=== PATIENT | female | born 1995 | race Caucasian/White ===

== ENCOUNTER 2017-01-13 21:37 | Emergency (ER) | payer MEDICARE ==
[2017-01-14 00:59] LABS: APPEARANCE,URINE CLEAR; BILIRUBIN,URINE NEGATIVE (NEGATIVE); GLUCOSE, URINE NEGATIVE (NEGATIVE); KETONES,URINE NEGATIVE (NEGATIVE); LEUKOCYTE ESTERASE,URINE NEGATIVE (NEGATIVE); NITRITE,URINE NEGATIVE (NEGATIVE); PROTEIN,URINE NEGATIVE (NEGATIVE); URINE SPECIFIC GRAVITY 1.014; UROBILINOGEN,URINE NEGATIVE mg/dL (<2.0)
[2017-01-14 01:51] LABS: URINE BARBITURATES SCREEN NEGATIVE; URINE METHADONE SCREEN NEGATIVE; URINE OPIATES LOW NEGATIVE; URINE PHENCYCLIDINE SCREEN NEGATIVE
--- NOTE | 2017-01-14 02:09 | ER Document Report ---
ED General - General Chief Complaint: Vaginal Discharge Stated Complaint: VAGINAL ISSUE Time Seen by Provider: 01/14/17 00:24 Notes: Patient is a 21 year old female who presents with concerns about vaginal discharge as well as diffuse abdominal pain. Patient states for the past 2 days she has had a malodorous, thin, rodriguez vaginal discharge. States this feels similar when she had bacterial vaginosis in the past. Regarding her abdominal pain: Patient states that she has chronic daily abdominal pain and that this is not different today. Does describe as a diffuse, cramping, mild pain. Nothing improves or worsens her symptoms. She has not had any associated fever or constitutional symptoms. No vomiting or diarrhea. Denies any dysuria or hematuria. She has not seen her primary care doctor regarding today's concerns. TRAVEL OUTSIDE OF THE [place] IN LAST 30 DAYS: No - Related Data Allergies/Adverse Reactions: latex Allergy (Verified 01/13/17 22:53) Penicillins Allergy (Verified 01/13/17 22:53) Past Medical History - General Information source: Patient Last Menstrual Period: 01/08/17 - Social History Smoking Status: Current Every Day Smoker Frequency of alcohol use: None Drug Abuse: None Lives with: Spouse/Significant other Family History: Reviewed & Not Pertinent Patient has suicidal ideation: No Patient has homicidal ideation: No Renal/ Medical History: Denies: Hx Peritoneal Dialysis Review of Systems - Review of Systems Notes: Constitutional: Negative for fever. HENT: Negative for sore throat. Eyes: Negative for visual changes. Cardiovascular: Negative for chest pain. Respiratory: Negative for shortness of breath. Gastrointestinal: Positive for abdominal pain Genitourinary: Negative for dysuria. Positive for vaginal discharge Musculoskeletal: Negative for back pain. Skin: Negative for rash. Neurological: Negative for headaches, weakness or numbness. 10 point ROS negative except as marked above and in HPI. Physical Exam - Vital signs Vitals: Temp Pulse Resp BP Pulse Ox 98.5 F 75 18 115/63 99 01/13/17 22:11 01/13/17 22:11 01/13/17 22:11 01/13/17 22:11 01/13/17 22:11 Interpretation: Normal Notes: PHYSICAL EXAMINATION: GENERAL: Well-appearing, well-nourished and in no acute distress. HEAD: Atraumatic, normocephalic. EYES: Pupils equal round and reactive to light, extraocular movements intact, sclera anicteric, conjunctiva are normal. ENT: nares patent, oropharynx clear without exudates. Moist mucous membranes. NECK: Normal range of motion, supple without lymphadenopathy LUNGS: Breath sounds clear to auscultation bilaterally and equal. No wheezes rales or rhonchi. HEART: Regular rate and rhythm without murmurs ABDOMEN: Soft, nontender, normoactive bowel sounds. No guarding, no rebound. No masses appreciated. Pelvic: No cervical motion tenderness. No adnexal tenderness. Slight suprapubic tenderness to palpation. There is a thin, white discharge EXTREMITIES: Normal range of motion, no pitting or edema. No cyanosis. NEUROLOGICAL: No focal neurological deficits. Moves all extremities spontaneously and on command. PSYCH: Normal mood, normal affect. SKIN: Warm, Dry, normal turgor, no rashes or lesions noted. Course - Re-evaluation Re-evalutation: 01/14/17 02:07 Presentation of generalized, intermittent abdominal pain. Abdominal exam is benign without any focal tenderness. Vitals are normal at the time of arrival. Laboratories are unremarkable without evidence of cystitis, , or leukocytosis. Patient is overall very well in appearance. Based on clinical history and examination I do not suspect an acute appendicitis, tubo-ovarian abscess, related pathology, pelvic inflammatory disease, mesenteric ischemia, or pyelonephritis. Pelvic exam without cervical motion tenderness or focal adnexal tenderness. Patient does have signs and symptoms consistent with bacterial vaginosis and will be treated with metronidazole. At this time will discharge with return precautions and follow-up recommendations. Verbal discharge instructions given a the bedside and opportunity for questions given. Medication warnings reviewed. Patient is in agreement with this plan and has verbalized understanding of return precautions and the need for primary care follow-up in the next 24-72 hours. - Vital Signs Vital signs: Temp Pulse Resp BP Pulse Ox 97.7 F 76 16 104/63 98 01/14/17 02:29 01/14/17 02:29 01/14/17 02:29 01/14/17 02:29 01/14/17 02:29 Discharge - Discharge Clinical Impression: Bacterial vaginosis, Chronic abdominal pain Condition: Good Disposition: HOME, SELF-CARE Additional Instructions: You have been seen in the Emergency Department (ED) for abdominal pain. Your evaluation did not identify a clear cause of your symptoms but was generally reassuring. You do have an overgrowth of natural vaginal bacteria, called bacterial vaginosis. You are being treated with an antibiotic called metronidazole. Do not drink alcohol while taking this medication. Complete all of the antibiotic even if your symptoms have resolved. Please follow up with your doctor as soon as possible regarding today's emergent visit and the symptoms that are bothering you. Return to the ED if your abdominal pain worsens or fails to improve, you develop bloody vomiting, bloody diarrhea, you are unable to tolerate fluids due to vomiting, fever greater than 101, or other symptoms that concern you. Prescriptions: Metronidazole 500 mg PO BID #14 tablet Referrals: GIANNI VERGARA MD [Primary Care Provider] - Follow up as needed
[2017-01-14 02:30] VITALS: BP 104/63
[2017-01-14 02:39] LABS: CHLAM PCR NOT DETECTED (NOT DETECT)
== END 2017-01-14 02:30 | disposition home or self-care (01) ==
LOC: ER 21:37
DX: N76.0 Acute vaginitis (principal); B96.89 Other specified bacterial agents as the cause of diseases classified elsewhere; G89.29 Other chronic pain; R10.84 Generalized abdominal pain; F17.200 Nicotine dependence, unspecified, uncomplicated; Z91.041 Radiographic dye allergy status; Z88.0 Allergy status to penicillin
CPT/HCPCS: 80307; 81001; 81025; 87210; 87491; 87591; 99283

== ENCOUNTER 2017-02-13 23:15 | Emergency (ER) | payer MEDICARE ==
--- NOTE | 2017-02-13 23:21 | ER Document Report ---
ED Psych Disorder / Suicide - General Chief Complaint: Possible Overdose Stated Complaint: SUICIDIAL IDEATION Time Seen by Provider: 02/13/17 23:17 Notes: The patient is a 22-year-old female, past medical history anxiety, depression, bipolar, PTSD, ADHD, presents by EMS after she took 25 tabs of the 150 mg Wellbutrin tabs in an attempt to kill herself at 22:30. Her called 911. Patient is very depressed about an upcoming divorce. She denies seizures , chest pain, shortness of breath, numbness, tingling, nausea, vomiting or abdominal pain. TRAVEL OUTSIDE OF THE [place] IN LAST 30 DAYS: No - Related Data Allergies/Adverse Reactions: latex Allergy (Verified 01/13/17 22:53) Penicillins Allergy (Verified 01/13/17 22:53) Past Medical History - General Information source: Patient, Emergency Med Personnel - Social History Smoking Status: Unknown if Ever Smoked Family History: Reviewed & Not Pertinent Renal/ Medical History: Denies: Hx Peritoneal Dialysis Review of Systems - Review of Systems Notes: REVIEW OF SYSTEMS: CONSTITUTIONAL: -fevers, -chills EENT: -eye pain, -difficulty swallowing, -nasal congestion CARDIOVASCULAR:-chest pain, -syncope. RESPIRATORY: -cough, -SOB GASTROINTESTINAL: -abdominal pain, - nausea, -vomiting, -diarrhea GENITOURINARY: -dysuria, -hematuria MUSCULOSKELETAL: -back pain, -neck pain SKIN: -rash or skin lesions. HEMATOLOGIC: -easy bruising or bleeding. LYMPHATIC: -swollen, enlarged glands. NEUROLOGICAL: -altered mental status or loss of consciousness, -headache, - neurologic symptoms PSYCHIATRIC: -anxiety, +depression. ALL OTHER SYSTEMS REVIEWED AND NEGATIVE. Physical Exam - Vital signs Vitals: Temp Pulse Resp BP Pulse Ox 97.6 F 94 21 H 119/75 100 02/14/17 00:05 02/14/17 00:05 02/14/17 00:05 02/14/17 00:05 02/14/17 00:05 - Notes Notes: PHYSICAL EXAMINATION: GENERAL: Well-appearing, well-nourished and in no acute distress. HEAD: Atraumatic, normocephalic. EYES: Pupils equal round and reactive to light, extraocular movements intact, sclera anicteric, conjunctiva are normal. ENT: nares patent, oropharynx clear without exudates. Moist mucous membranes. NECK: Normal range of motion, supple without lymphadenopathy LUNGS: Breath sounds clear to auscultation bilaterally and equal. No wheezes rales or rhonchi. HEART: Regular rate and rhythm without murmurs ABDOMEN: Soft, nontender, normoactive bowel sounds. No guarding, no rebound. No masses appreciated. EXTREMITIES: Normal range of motion, no pitting or edema. No cyanosis. NEUROLOGICAL: Cranial nerves grossly intact. Normal speech, normal gait. Normal sensory and motor exams. PSYCH: Flat affect. SKIN: Warm, Dry, normal turgor, no rashes or lesions noted. Course - Re-evaluation Re-evalutation: 02/13/17 23:39 Pt appears well. IVC filled out. Pt with leukocytosis, but no signs of infection at this time. Flakita RN, spoke to Poison Control and they are recommending activated charcoal, monitor for 18-24 hours, repeat EKGs and if QRS is prolonged, give Bicarb bolus. Benzos for any seizures. There is a risk for seizures and delayed effects from the Wellbutrin due to the long- acting nature. Pt will be monitored. Mental Health will see patient once she is medically cleared at 02/14/2017 at 22:00. - Vital Signs Vital signs: Temp Pulse Resp BP Pulse Ox 97.6 F 94 23 H 101/59 L 98 02/14/17 00:05 02/14/17 00:05 02/14/17 03:40 02/14/17 03:40 02/14/17 03:40 - Laboratory Result Diagrams: 02/13/17 23:25 02/13/17 23:25 Laboratory results interpreted by me: 02/13/17 02/13/17 02/13/17 23:19 23:25 23:25 WBC 16.5 H RDW 15.0 H Absolute Neutrophils 10.9 H Chloride 110 H Calcium 10.3 H Ur Leukocyte Esterase SMALL H Salicylates < 1.0 L Acetaminophen < 10 L - EKG Interpretation by Me EKG shows normal: Sinus rhythm, Good[place], Intervals, QRS Complexes, ST-T Waves Rate: Normal - She Discharge - Discharge Clinical Impression: Bupropion overdose Qualifiers: Encounter type: initial encounter Injury intent: intentional self-harm Qualified Code(s): T43.292A - Poisoning by other antidepressants, intentional self-harm, initial encounter Condition: Serious Disposition: PSYCH HOSP/UNIT
[2017-02-13 23:34] LABS: ABSOLUTE BASOPHILS # (AUTO) 0.2 10^3/uL (0.0-0.2); ABSOLUTE EOSINOPHILS # (AUTO) 0.2 10^3/uL (0.0-0.6); ABSOLUTE MONOCYTES (AUTO) 1.2 10^3/uL (0.1-1.4); ABSOLUTE NEUT (AUTO) 10.9 10^3/uL (1.7-8.2); EOSINOPHILS % (AUTO) 1.3 % (0-6); HEMATOCRIT 41.6 % (36.0-47.0); HEMOGLOBIN 14.6 g/dL (12.0-15.5); HGB HCT DIFFERENCE 2.2; LYMPHOCYTES % (AUTO) 24.3 % (13-45); MEAN CORPUSCULAR HEMOGLOBIN 30.3 pg (27.0-33.4); MEAN CORPUSCULAR HGB CONC 35.2 g/dL (32.0-36.0); MEAN CORPUSCULAR VOLUME 86 fl (80-97); MONOCYTES % (AUTO) 7.4 % (3-13); RED BLOOD COUNT 4.82 10^6/uL (3.72-5.28); WHITE BLOOD COUNT 16.5 10^3/uL (4.0-10.5)
[2017-02-13 23:41] LABS: AMORPHOUS SEDIMENT,URINE 1+ /HPF; APPEARANCE,URINE TURBID; BILIRUBIN,URINE NEGATIVE (NEGATIVE); GLUCOSE, URINE NEGATIVE (NEGATIVE); KETONES,URINE NEGATIVE (NEGATIVE); LEUKOCYTE ESTERASE,URINE SMALL (NEGATIVE); NITRITE,URINE NEGATIVE (NEGATIVE); PROTEIN,URINE NEGATIVE (NEGATIVE); URINE SPECIFIC GRAVITY 1.015; UROBILINOGEN,URINE NEGATIVE mg/dL (<2.0)
[2017-02-13 23:51] LABS: URINE BARBITURATES SCREEN NEGATIVE; URINE METHADONE SCREEN NEGATIVE; URINE OPIATES LOW NEGATIVE; URINE PHENCYCLIDINE SCREEN NEGATIVE
[2017-02-14 00:10] LABS: ALANINE AMINOTRANSFERASE 23 U/L (9-52); ALBUMIN 4.3 g/dL (3.5-5.0); ALCOHOL < 10 mg/dL (NONE DETECTED); ALKALINE PHOSPHATASE 84 U/L (38-126); ANION GAP 9 (5-19); ASPARTATE AMINO TRANSFERASE 18 U/L (14-36); BILIRUBIN,DIRECT 0.3 mg/dL (0.0-0.4); BILIRUBIN,TOTAL 0.3 mg/dL (0.2-1.3); BLOOD UREA NITROGEN 13 mg/dL (7-20); CALCIUM 10.3 mg/dL (8.4-10.2); CARBON DIOXIDE 22 mmol/L (22-30); CHLORIDE 110 mmol/L (98-107); CREATININE RESULT 0.63 mg/dL (0.52-1.25); GLUCOSE 91 mg/dL (75-110); POTASSIUM 4.4 mmol/L (3.6-5.0); SODIUM 141.1 mmol/L (137-145)
[2017-02-14] MEDS ORDERED: ACTIVATED CHARCOAL 25 GM BOTTLE PO ONE (00:18)
--- NOTE | 2017-02-14 07:01 | EKG REPORT ---
SEVERITY:- NORMAL ECG - SINUS RHYTHM : Confirmed by: Bubba Denton 14-Feb-2017 07:00:03
--- NOTE | 2017-02-14 07:01 | EKG REPORT ---
SEVERITY:- NORMAL ECG - SINUS RHYTHM ST ELEV, PROBABLE NORMAL EARLY REPOL PATTERN : Confirmed by: Bubba Denton 14-Feb-2017 06:59:53
--- NOTE | 2017-02-14 09:19 | ER Document Report ---
ED Psych Disorder / Suicide - General Chief Complaint: Possible Overdose Stated Complaint: SUICIDIAL IDEATION Time Seen by Provider: 02/13/17 23:17 Information source: Patient, Relative - TRAVEL OUTSIDE OF THE [place] IN LAST 30 DAYS: No - HPI Patient complains to provider of: Overdose - Welbutrin, Suicidal ideation, Suicidal attempt Onset: Other Onset was: Gradual Suicide Risk Factors: Depressed, Frightened friends/family, Lack of social support, Other - pending divorce Situational problems related to: Spouse, Other Suicide Attempt Method: Overdose Overdose of: Anti-depressants Normal mood: No Associated symptoms: Anxious, Depressed Similar symptoms previously: Yes Recently seen / treated by doctor: Yes - PCM only Notes: The patient is a 22-year-old female, past medical history anxiety, depression, bipolar, PTSD, ADHD, presents by EMS after she took 25 tabs of the 150 mg Wellbutrin tabs in an attempt to kill herself at 22:30. Patient's reportedly called for help. Toxicology was positive for marijuana. Patient this morning states she was not attempting suicide. She states she wanted to go to sleep. Patient states "went a little overboard." Patient reports she was crying and couldn't stop, so she wanted to go to sleep. Patient reported she was crying because she and her were arguing and he told her he wanted a divorce. She states that she is diagnosed with PTSD and Bipolar Disorder. She states she receives disability for these diagnoses. Patient states she does not want to . She states she is followed by her PCM and prescribed the Wellbutrin. Discussed with patient her PTSD and any known triggers. Patient states she does not know specific stressors; however, was eventually able to identify loud voices/being yelled at. reports: everything is fine. He states their marriage is not something that needs to be discussed here. He also stated that the patient was fine, and made comments to this clinician like, "she said she didn't know." advised that this was the process and if he continued to interfere, he would be escorted out. stated he had nothing else to say. Patient is A&O. Mood is labile, and at times sad and other times laughs inappropriately. Patient denies suicidal/homicidal ideations. However, 25 tabs of Wellbutrin suggests intent. Patient denies A/V H; delusions not noted. Thought processes were guarded. Conversational speech was WNL for rate, tone, and prosody. Intellectual abilities were estimated within lower average range. Attention and focus were fair. Insight, judgment, and impulse control were poor. Posttraumatic Stress Disorder, per history Unspecified Bipolar and related Disorder, per pt Patient will be reevaluated again later today. She will not be medically cleared until 2200 tonight. Patient is recommended to remain under IVC for further evaluation and disposition, likely tomorrow morning. I consulted with Dr. Mayo in regards to the care and management of this patient. ED MD is in agreement with disposition and recommendation. - Related Data Allergies/Adverse Reactions: latex Allergy (Verified 01/13/17 22:53) Penicillins Allergy (Verified 01/13/17 22:53) Past Medical History - General Information source: Patient, Emergency Med Personnel - Social History Smoking Status: Unknown if Ever Smoked Chew tobacco use (# tins/day): No Frequency of alcohol use: None Drug Abuse: None Family History: Reviewed & Not Pertinent Pulmonary Medical History: Reports: Hx Asthma Renal/ Medical History: Denies: Hx Peritoneal Dialysis Psychiatric Medical History: Reports: Hx Attention Deficit Hyperactivity Disorder, Hx Bipolar Disorder, Hx Depression Past Surgical History: Reports: Hx Section Physical Exam - Vital signs Vitals: Temp Pulse Resp BP Pulse Ox 97.6 F 94 21 H 119/75 100 02/14/17 00:05 02/14/17 00:05 02/14/17 00:05 02/14/17 00:05 02/14/17 00:05 Course - Vital Signs Vital signs: Temp Pulse Resp BP Pulse Ox 98.3 F 86 16 115/69 100 02/14/17 09:58 02/14/17 09:58 02/14/17 09:58 02/14/17 09:58 02/14/17 09:58 - Laboratory Result Diagrams: 02/13/17 23:25 02/13/17 23:25 Laboratory results interpreted by me: 02/13/17 02/13/17 02/13/17 23:19 23:25 23:25 WBC 16.5 H RDW 15.0 H Absolute Neutrophils 10.9 H Chloride 110 H Calcium 10.3 H Ur Leukocyte Esterase SMALL H Salicylates < 1.0 L Acetaminophen < 10 L Discharge - Discharge Clinical Impression: PTSD (post-traumatic stress disorder), Bipolar 1 disorder, depressed, mild Bupropion overdose Qualifiers: Encounter type: initial encounter Injury intent: intentional self-harm Qualified Code(s): T43.292A - Poisoning by other antidepressants, intentional self-harm, initial encounter Condition: Serious Disposition: PSYCH HOSP/UNIT Additional Instructions: Bipolar Disorder Bipolar disorder is also called manic-depressive disorder. Depression alternates with brain hyperactivity called abiodun. Each phase lasts from several days to a few weeks. We don't know exactly what causes bipolar disorder , but it's treatable. During the "manic phase," you may feel elated and energetic. You may have racing thoughts, rapid speech, increased activity, and grandiose ideas. During this time, you may not realize how poor your judgement is. Inappropriate spending, drug abuse, excessive alcohol use, marriage problems, and irresponsible sexual behavior are common during the manic phase. During the "depressive phase," you might feel depressed, guilty, worthless , fatigued, and unable to concentrate. You might have thoughts of suicide. Good treatments are available for bipolar disorder. Bowring is a classic drug for bipolar disorder, and is still often useful. If the manic phase is very mild, an antidepressant alone can be prescribed. If the manic phase is very severe, an antipsychotic medicine (such as Haldol) may be needed. The treatment must be matched to your symptoms, so it's important to work closely with your psychiatric care provider. Contact your physician, the hospital emergency center, crisis line, or your counsellor if you are losing control or having self-destructive thoughts. Post-Traumatic Stress Disorder You seem to have post-traumatic stress disorder (PTSD). PTSD can cause chronic anxiety, sleeping problems, social withdrawal, and drug abuse. It can occur following a traumatic personal experience such as an accident, rape, assault, or of a loved one, or after experiencing a war or natural disaster. Symptoms may be delayed for days or even years. Emotional numbing, the inability to express grief, is usually the earliest sign. There may be apathy or agitation, aggression, and inability to perform ordinary tasks. Often there are frightening nightmares and sudden, intruding memories of the trauma. Panic attacks and feelings of guilt are common. Alcohol and drug use make post- traumatic stress symptoms worse. Medication may be temporarily necessary to combat anxiety, panic attacks, and depression. Medicine should not be considered a "cure." You must deal with the trauma and prepare to go on. Group therapy is often helpful. This helps you "talk through" the problem with others who share your symptoms. We can provide you with an appropriate referral. Referrals: [facility] [Provider Group] - Follow up as needed
--- NOTE | 2017-02-14 10:31 | ER Document Report ---
Doctor's Note Notes: 02/14/17 10:27 Patient seen and evaluated this morning with our social work supervisor. Patient is upset that she has stayed overnight. Reviewing the provider's note patient came in as an intentional overdose of 22 Wellbutrin tablets and apparent suicide attempt. Poison control was consulted due to the prolonged effects of the Wellbutrin patient will not be medically cleared until 10:00 tonight. Patient otherwise is agitated upon my evaluation nurses reported that she was having some tremors earlier. Did review EKGs no signs of any QRS widening. Patient is in the room with her significant other patient now states that she was not trying to harm herself. At this time mental health team still recommends IVC hold. I agree with this assessment and plan at this time as the patient to take a toxic dose of Wellbutrin. We will continue to monitor.
[2017-02-14] MEDS ORDERED: CITALOPRAM HYDROBROMIDE 20 MG TABLET PO SCH (12:00)
--- NOTE | 2017-02-14 20:34 | EKG REPORT ---
SEVERITY:- BORDERLINE ECG - SINUS RHYTHM BORDERLINE Q WAVES IN INFERIOR LEADS INFERIOR Q WAVES, PROBABLY NORMAL VARIATION : Confirmed by: Bubba Denton 14-Feb-2017 20:34:17
--- NOTE | 2017-02-14 20:34 | EKG REPORT ---
SEVERITY:- BORDERLINE ECG - SINUS RHYTHM PROBABLE LEFT ATRIAL ABNORMALITY INFERIOR Q WAVES, PROBABLY NORMAL VARIATION : Confirmed by: Bubba Denton 14-Feb-2017 20:34:05
[2017-02-15 08:36] VITALS: BP 119/70
--- NOTE | 2017-02-15 20:05 | EKG REPORT ---
SEVERITY:- NORMAL ECG - SINUS RHYTHM : Confirmed by: Bubba Denton 15-Feb-2017 20:04:36
== END 2017-02-15 08:49 | disposition home or self-care (01) ==
LOC: ER 23:15
DX: T43.292A Poisoning by other antidepressants, intentional self-harm, initial encounter (principal); F31.9 Bipolar disorder, unspecified; Y92.009 Unspecified place in unspecified non-institutional (private) residence as the place of occurrence of the external cause; F41.9 Anxiety disorder, unspecified; F43.10 Post-traumatic stress disorder, unspecified; Z88.0 Allergy status to penicillin; Z91.040 Latex allergy status
CPT/HCPCS: 36415; 80053; 80307; 81001; 82962; 84703; 85025; 93005; 93010; 99284

== ENCOUNTER → 2017-03-14 | Outpatient (CLI) | payer MEDICARE, OTHER ==
--- NOTE | 2017-03-14 18:59 | WOMENS IMAGING REPORT ---
EXAM DESCRIPTION: U/S BREAST UNILAT LIMITED COMPLETED DATE/TIME: 03/14/2017 10:37 am REASON FOR STUDY: UNSPECIFIED LUMP IN R BREAST; N63.10; N63.10, N63.20 N63.10 UNSPECIFIED LUMP IN THE RIGHT BREAST, UNSPECIFIED KAVYA N63.20 UNSPECIFIED LUMP IN THE LEFT BREAST, UNSPECIFIED QUAD COMPARISON: None. TECHNIQUE: Real-time and static grayscale imaging performed of the right breast lower outer quadrant , left breast lower outer quadrant and upper inner quadrant in areas of palpable abnormality. Graysc virgilio imaging saved to PACS LIMITATIONS: None. FINDINGS: MASS: No mass identified. Normal glandular tissue. OTHER: No other significant finding. IMPRESSION: No suspicious findings detected by ultrasound. BIRAD: 1 Negative. RECOMMENDATION: RECOMMENDED FOLLOW-UP: Follow-up as clinically indicated. COMMENT: The [employer] (ACR) has developed recommendations for screening MRI of the breasts in certain patient populations, to be used in conjunction with mammography. Breast MRI s urveillance may be appropriate for women with more than 20% lifetime risk of developing breast cancer as determined by genetic testing, significant family history of the disease, or history of mantle r adiation for Hodgkins Disease. ACR Practice Guidelines 2008. TECHNICAL DOCUMENTATION: JOB ID: [id number] [employer]- All Rights Reserved
--- NOTE | 2017-03-14 18:59 | WOMENS IMAGING REPORT ---
EXAM DESCRIPTION: U/S BREAST UNILAT LIMITED COMPLETED DATE/TIME: 03/14/2017 10:37 am REASON FOR STUDY: UNSPECIFIED LUMP IN R BREAST; N63.10; N63.10, N63.20 N63.10 UNSPECIFIED LUMP IN THE RIGHT BREAST, UNSPECIFIED KAVYA N63.20 UNSPECIFIED LUMP IN THE LEFT BREAST, UNSPECIFIED QUAD COMPARISON: None. TECHNIQUE: Real-time and static grayscale imaging performed of the right breast lower outer quadrant , left breast lower outer quadrant and upper inner quadrant in areas of palpable abnormality. Graysc virgilio imaging saved to PACS LIMITATIONS: None. FINDINGS: MASS: No mass identified. Normal glandular tissue. OTHER: No other significant finding. IMPRESSION: No suspicious findings detected by ultrasound. BIRAD: 1 Negative. RECOMMENDATION: RECOMMENDED FOLLOW-UP: Follow-up as clinically indicated. COMMENT: The [employer] (ACR) has developed recommendations for screening MRI of the breasts in certain patient populations, to be used in conjunction with mammography. Breast MRI s urveillance may be appropriate for women with more than 20% lifetime risk of developing breast cancer as determined by genetic testing, significant family history of the disease, or history of mantle r adiation for Hodgkins Disease. ACR Practice Guidelines 2008. TECHNICAL DOCUMENTATION: JOB ID: [id number] [employer]- All Rights Reserved
== END ==
LOC: WI 10:46
PROVIDERS: ATTEND Family Medicine Geriatric Medicine
DX: N63.20 Unspecified lump in the left breast, unspecified quadrant (principal); N63.10 Unspecified lump in the right breast, unspecified quadrant
CPT/HCPCS: 76642

== ENCOUNTER 2017-03-23 11:25 | Emergency (ER) | payer MEDICARE, OTHER ==
[2017-03-23] MEDS ORDERED: METHYLPREDNISOLONE INJ 125 MG/2 ML SDV IV ONE (11:46)
[2017-03-23] MEDS ORDERED: DIPHENHYDRAMINE HCL 50 MG/ML VIAL IV ONE (11:46)
--- NOTE | 2017-03-23 11:58 | ER Document Report ---
ED Medical Screen (RME) - General Chief Complaint: Facial Swelling Stated Complaint: POSSIBLE ALLERGIC REACTION Time Seen by Provider: 03/23/17 11:46 Notes: Patient stated she recently started albuterol inhaler and gabapentin. She took 6 doses of gabapentin and she used the albuterol for 2 days. She states she started last night with painful lesions about her mouth. Today she woke up and had lip swelling and lip blisters as well as tongue pain and tongue blisters. She also states it hurts to swallow. She has not noticed any other rashes other than her hands and feet appear slightly swollen and red. TRAVEL OUTSIDE OF THE [place] IN LAST 30 DAYS: No - Related Data Allergies/Adverse Reactions: latex Allergy (Verified 03/23/17 11:39) Penicillins Allergy (Verified 03/23/17 11:39) Past Medical History - Social History Chew tobacco use (# tins/day): No Frequency of alcohol use: None Drug Abuse: None Pulmonary Medical History: Reports: Hx Asthma Renal/ Medical History: Denies: Hx Peritoneal Dialysis Psychiatric Medical History: Reports: Hx Attention Deficit Hyperactivity Disorder, Hx Bipolar Disorder, Hx Depression Past Surgical History: Reports: Hx Section Physical Exam - Vital signs Vitals: Temp Pulse Resp BP Pulse Ox 98.3 F 80 16 107/59 L 98 03/23/17 11:32 03/23/17 11:32 03/23/17 11:32 03/23/17 11:32 03/23/17 11:32 Course - Vital Signs Vital signs: Temp Pulse Resp BP Pulse Ox 98.3 F 80 16 107/59 L 98 03/23/17 11:32 03/23/17 11:32 03/23/17 11:32 03/23/17 11:32 03/23/17 11:32
[2017-03-23] MEDS ORDERED: NORMAL SALINE 1000 ML 1,000 ML IV ONE (12:04)
[2017-03-23 12:18] LABS: HEMATOCRIT 39.6 % (36.0-47.0); HEMOGLOBIN 14.4 g/dL (12.0-15.5); HGB HCT DIFFERENCE 3.6; MEAN CORPUSCULAR HEMOGLOBIN 30.9 pg (27.0-33.4); MEAN CORPUSCULAR HGB CONC 36.3 g/dL (32.0-36.0); MEAN CORPUSCULAR VOLUME 85 fl (80-97); RED BLOOD COUNT 4.65 10^6/uL (3.72-5.28); RED CELL DISTRIBUTION WIDTH 14.3 % (11.5-14.0); WHITE BLOOD COUNT 11.3 10^3/uL (4.0-10.5)
[2017-03-23 12:39] LABS: ANION GAP 14 (5-19); BLOOD UREA NITROGEN 10 mg/dL (7-20); CARBON DIOXIDE 24 mmol/L (22-30); CHLORIDE 106 mmol/L (98-107); CREATININE RESULT 0.67 mg/dL (0.52-1.25); GLUCOSE 88 mg/dL (75-110); POTASSIUM 4.5 mmol/L (3.6-5.0); SODIUM 143.5 mmol/L (137-145)
--- NOTE | 2017-03-23 14:12 | ER Document Report ---
ED General - General Chief Complaint: Facial Swelling Stated Complaint: POSSIBLE ALLERGIC REACTION Time Seen by Provider: 03/23/17 11:46 TRAVEL OUTSIDE OF THE [place] IN LAST 30 DAYS: No - HPI Patient complains to provider of: Lip swelling painful tongue Notes: Patient coming in for evaluation for lip swelling in the painful tongue. Patient states symptoms ongoing since starting Neurontin and inhaler. Patient is concerned for possible allergic reaction. Patient was seen in triage and given Benadryl and Solu-Medrol. Upon my evaluation patient talking in the normal voice states no other new medications. Patient denies fevers chills nausea vomiting denies any history of being . - Related Data Allergies/Adverse Reactions: latex Allergy (Verified 03/23/17 11:39) Penicillins Allergy (Verified 03/23/17 11:39) Home Medications: Current Home Medications Budesonide/Formoterol Fumarate [Symbicort Hfa 80-4.5 Mcg Inhaler 6.9 gm] puff IH 03/23/17 [History] Gabapentin [Neurontin 300 mg Capsule] 300 mg PO Q8 03/23/17 [History] Lamotrigine [Lamictal] 50 mg PO DAILY 03/23/17 [History] Past Medical History - Social History Smoking Status: Current Every Day Smoker Chew tobacco use (# tins/day): No Frequency of alcohol use: None Drug Abuse: None Family History: Reviewed & Not Pertinent Patient has suicidal ideation: No Patient has homicidal ideation: No Pulmonary Medical History: Reports: Hx Asthma Renal/ Medical History: Denies: Hx Peritoneal Dialysis Psychiatric Medical History: Reports: Hx Attention Deficit Hyperactivity Disorder, Hx Bipolar Disorder, Hx Depression Past Surgical History: Reports: Hx Section Review of Systems - Review of Systems Constitutional: No symptoms reported EENT: Other - Lip swelling painful tongue Cardiovascular: No symptoms reported Respiratory: No symptoms reported Gastrointestinal: No symptoms reported Genitourinary: No symptoms reported Female Genitourinary: No symptoms reported Musculoskeletal: No symptoms reported Skin: No symptoms reported Hematologic/Lymphatic: No symptoms reported Neurological/Psychological: No symptoms reported Physical Exam - Vital signs Vitals: Temp Pulse Resp BP Pulse Ox 98.3 F 80 16 107/59 L 98 03/23/17 11:32 03/23/17 11:32 03/23/17 11:32 03/23/17 11:32 03/23/17 11:32 Interpretation: Normal - General General appearance: Appears well, Alert - HEENT Head: Normocephalic, Atraumatic Eyes: Normal Conjunctiva: Normal Cornea: Normal Pupils: PERRL Mouth/Lips: Other - Dry lips no obvious swelling. Patient has ulcer formation on the tongue. No other intraoral lesions. - Respiratory Respiratory status: No respiratory distress Chest status: Nontender Breath sounds: Normal Chest palpation: Normal - Cardiovascular Rhythm: Regular Heart sounds: Normal auscultation Murmur: No - Abdominal Inspection: Normal Distension: No distension Bowel sounds: Normal Tenderness: Nontender Organomegaly: No organomegaly - Back Back: Normal, Nontender - Extremities General upper extremity: Normal inspection, Nontender, Normal color, Normal ROM , Normal temperature General lower extremity: Normal inspection, Nontender, Normal color, Normal ROM , Normal temperature, Normal weight bearing. No: Joey's sign - Neurological Neuro grossly intact: Yes Cognition: Normal Orientation: AAOx4 E[place] Coma Scale Eye Opening: Spontaneous [place] Coma Scale Verbal: Oriented [place] Coma Scale Motor: Obeys Commands Efrain Coma Scale Total: 15 Speech: Normal Motor strength normal: LUE, RUE, LLE, RLE Sensory: Normal - Psychological Associated symptoms: Normal affect, Normal mood - Skin Skin Temperature: Warm Skin Moisture: Dry Skin Color: Normal Course - Re-evaluation Re-evalutation: 03/23/17 15:10 Patient feeling better after the IV Benadryl and steroids. At this time more likely probably a viral etiology for symptoms do not think there is any signs of Cheek-Santosh's patient has not been on any recent medications to form Gordon Santosh's. Patient is will be discharged home with Atarax and Magic mouthwash for pain control. Recommend that she follow-up with her primary care physician. - Vital Signs Vital signs: Temp Pulse Resp BP Pulse Ox 97.7 F 60 16 109/61 100 03/23/17 14:18 03/23/17 14:18 03/23/17 14:18 03/23/17 14:18 03/23/17 14:18 - Laboratory Result Diagrams: 03/23/17 12:10 03/23/17 12:10 Laboratory results interpreted by me: 03/23/17 12:10 WBC 11.3 H MCHC 36.3 H RDW 14.3 H Discharge - Discharge Clinical Impression: Facial swelling, Painful tongue Condition: Good Disposition: HOME, SELF-CARE Instructions: Acute Allergic Reaction ([facility]) Additional Instructions: At this time I believe her symptoms more likely due to viral infection such as a fever blister is causing her tongue to be painful. I will continue with Atarax medication to help out with any facial swelling he may use the Magic mouthwash as prescribed to help out with pain also take Tylenol and Motrin. Return to ER symptoms worsen Prescriptions: Hydroxyzine HCl [Atarax 25 mg Tablet] 1 tab PO QID #25 tablet Magic Mouthwash 5 ml PO Q6 #120 Forms: Return to Work
[2017-03-23 14:18] VITALS: BP 109/61
== END 2017-03-23 14:15 | disposition home or self-care (01) ==
LOC: ER 11:25
DX: R22.0 Localized swelling, mass and lump, head (principal); K14.6 Glossodynia; Z79.899 Other long term (current) drug therapy; F17.200 Nicotine dependence, unspecified, uncomplicated
CPT/HCPCS: 99283; 96361; 96374; 96375; 36415; 84703; 85027; 80048; J1200; J2930; J7030

== ENCOUNTER 2017-04-24 20:43 | Emergency (ER) | payer MEDICARE, OTHER ==
[2017-04-24 21:31] VITALS: BP 102/55
[2017-04-24] MEDS ORDERED: ACETAMINOPHEN 325 MG TABLET PO ONE (22:56)
[2017-04-24] MEDS ORDERED: ONDANSETRON 4 MG TAB.RAPDIS PO ONE (22:56)
--- NOTE | 2017-04-24 22:57 | ER Document Report ---
HPI - HPI Patient complains to provider of: Sore throat, headache Onset: Other - 2 days Onset/Duration: Gradual Quality of pain: Achy Pain Level: 5 Context: Patient presents complaining of sore throat with headache for the past 2 days. Patient does state she has been around multiple sick contacts recently. Patient denies any fever. Patient complains of generalized body aches Associated Symptoms: Body/muscle aches, Headache, Sore throat. denies: Nonproductive cough, Productive cough, Fever, Vomiting Exacerbated by: Denies Relieved by: Denies Similar symptoms previously: Yes Recently seen / treated by doctor: No - ROS ROS below otherwise negative: Yes Systems Reviewed and Negative: Yes All other systems reviewed and negative - CONSTITUTIONAL Constitutional: DENIES: Fever, Chills - EENT EENT: REPORTS: Sore Throat. DENIES: Ear Pain, Eye problems - NEURO Neurology: DENIES: Headache, Weakness, Vision blurred, Dizzinesss / Vertigo - CARDIOVASCULAR Cardiovascular: DENIES: Chest pain - RESPIRATORY Respiratory: DENIES: Trouble Breathing, Coughing - GASTROINTESTINAL Gastrointestinal: REPORTS: Nausea, Patient vomiting. DENIES: Abdominal Pain, Black / Bloody Stools - REPRODUCTIVE Reproductive: DENIES: : - MUSCULOSKELETAL Musculoskeletal: REPORTS: Back Pain. DENIES: Extremity pain - DERM Skin Color: Normal Skin Problems: None Past Medical History - General Information source: Patient - Social History Smoking Status: Current Every Day Smoker Smoking Education Provided: Yes Frequency of alcohol use: None Drug Abuse: None Occupation: [employer] Family History: Reviewed & Not Pertinent Patient has suicidal ideation: No Patient has homicidal ideation: No Pulmonary Medical History: Reports: Hx Asthma Renal/ Medical History: Denies: Hx Peritoneal Dialysis Psychiatric Medical History: Reports: Hx Attention Deficit Hyperactivity Disorder, Hx Bipolar Disorder, Hx Depression Past Surgical History: Reports: Hx Section Vertical Provider Document - CONSTITUTIONAL Agree With Documented VS: Yes Exam Limitations: No Limitations General Appearance: WD/WN, No Apparent Distress - INFECTION CONTROL TRAVEL OUTSIDE OF THE [place] IN LAST 30 DAYS: No - HEENT HEENT: Atraumatic, Normocephalic, Pharyngeal Tenderness, Pharyngeal Erythema. negative: Pharyngeal Exudate, Tympanic Membrane Red, Tympanic Membrane Bulging - NECK Neck: Normal Inspection, Supple. negative: Lymphadenopathy-Left, Lymphadenopathy-Right Notes: No meningismus - RESPIRATORY Respiratory: Breath Sounds Normal, No Respiratory Distress, Chest Non-Tender O2 Sat by Pulse Oximetry: 98 - CARDIOVASCULAR Cardiovascular: Regular Rate, Regular Rhythm, No Murmur - GI/ABDOMEN Gastrointestinal: Abdomen Soft, Abdomen Non-Tender - BACK Back: CVA Tenderness-Right, CVA Tenderness-Left - MUSCULOSKELETAL/EXTREMETIES Musculoskeletal/Extremeties: MAEW - NEURO Level of Consciousness: Alert, Appropriate Motor/Sensory: No Motor Deficit - DERM Integumentary: Warm, Dry, No Rash Course - Vital Signs Vital signs: Temp Pulse Resp BP Pulse Ox 98.2 F 73 17 102/55 L 98 04/24/17 21:29 04/24/17 21:29 04/24/17 21:29 04/24/17 21:29 04/24/17 21:29 - Laboratory Laboratory results interpreted by me: 04/25/17 01:53 Labs- Entire Visit 04/25/17 04/25/17 00:20 01:10 Urine Color YELLOW Urine Appearance SLIGHTLY-CLOUDY Urine pH 5.0 Ur Specific [place] 1.034 Urine Protein 30 H Urine Glucose (UA) NEGATIVE Urine Ketones TRACE H Urine Blood NEGATIVE Urine Nitrite NEGATIVE Urine Bilirubin NEGATIVE Urine Urobilinogen 2.0 H Ur Leukocyte Esterase MODERATE H Urine WBC (Auto) 139 Urine RBC (Auto) 14 Urine Bacteria (Auto) TRACE Squamous Epi Cells Auto 10 Urine Mucus (Auto) MANY Urine Ascorbic Acid 40 H Group A Strep Rapid NEGATIVE Discharge - Discharge Clinical Impression: Sore throat UTI (urinary tract infection) Qualifiers: Urinary tract infection type: site unspecified Hematuria presence: with hematuria Qualified Code(s): N39.0 - Urinary tract infection, site not specified ; R31.9 - Hematuria, unspecified; R31.9 - Hematuria, unspecified Nausea & vomiting Qualifiers: Vomiting type: unspecified Vomiting Intractability: non-intractable Qualified Code(s): R11.2 - Nausea with vomiting, unspecified Condition: Stable Disposition: HOME, SELF-CARE Instructions: Urinary Tract Infection ([facility]), Vomiting ([facility]), Nitrofurantoin ( [facility]), Sore Throat ([facility]) Additional Instructions: Return immediately for any new or worsening symptoms Followup with your primary care provider, call tomorrow to make a followup appointment Throat culture and urine culture are pending, we will call if you need any different treatment Increase oral fluids and stay well-hydrated Prescriptions: Naproxen [Naprosyn 250 Nmg Tablet] 1 tab PO BID #14 tablet Nitrofurantoin/Nitrofuran Mac [Macrobid 100 mg Capsule] 100 mg PO BID #14 capsule Ondansetron HCl [Zofran 4 mg Tablet] 1 - 2 tab PO Q6 PRN #15 tablet PRN Reason: Forms: Return to Work, Smoking Cessation Education Referrals: ROSLYN OCHOA MD [COMMUNITY BASED STAFF] - Follow up tomorrow
[2017-04-25 01:40] LABS: APPEARANCE,URINE SLIGHTLY-CLOUDY; BILIRUBIN,URINE NEGATIVE (NEGATIVE); GLUCOSE, URINE NEGATIVE (NEGATIVE); KETONES,URINE TRACE mg/dL (NEGATIVE); LEUKOCYTE ESTERASE,URINE MODERATE (NEGATIVE); NITRITE,URINE NEGATIVE (NEGATIVE); PROTEIN,URINE 30 mg/dL (NEGATIVE); URINE SPECIFIC GRAVITY 1.034
[2017-04-25] MEDS ORDERED: SULFAMETHOXAZOLE/TRIMETHOPRIM 800-160 MG TABLET PO ONE (01:51)
[2017-04-25] MEDS ORDERED: NITROFURANTOIN MONOHYD/M-CRYST 100 MG CAPSULE PO ONE (01:53)
== END 2017-04-25 02:15 | disposition home or self-care (01) ==
LOC: ER 20:43
DX: N39.0 Urinary tract infection, site not specified (principal); J02.9 Acute pharyngitis, unspecified; R11.2 Nausea with vomiting, unspecified; R51 Headache; F17.200 Nicotine dependence, unspecified, uncomplicated
CPT/HCPCS: 99283; 87070; 87086; 87880; 87088; 81001; A9270 ×3; J8499; S0119

== ENCOUNTER 2017-06-22 17:04 | Emergency (ER) | payer MEDICARE, OTHER ==
--- NOTE | 2017-06-22 18:09 | ER Document Report ---
ED GI/ <RACHEL ROQUEQUELINE - Last Filed: 06/22/17 23:38> - General Mode of Arrival: Ambulatory Information source: Patient TRAVEL OUTSIDE OF THE [place] IN LAST 30 DAYS: No - HPI Patient complains to provider of: Abdominal pain, Vomiting. No: Vaginal bleeding Onset: Other - 3 days Timing/Duration: Persistent Quality of pain: Achy Pain Level: 4 Location: Other - Generalized abdomen Vaginal bleeding (Compared to normal period): None Associated symptoms: Fever, Nausea, Vomiting. denies: Diarrhea, Dysuria, Urinary hesitancy, Urinary frequency, Urinary retention, Urinary urgency Exacerbated by: Denies Relieved by: Denies Similar symptoms previously: No Recently seen / treated by doctor: No <HASMUKH BARAHONA - Last Filed: 06/23/17 09:19> - General Chief Complaint: Abdominal Pain Stated Complaint: ABDOMINAL PAIN Time Seen by Provider: 06/22/17 17:55 Notes: Patient presents complaining of generalized abdominal pain for the past 3 days. Patient does report nausea and vomiting over the past few days but states that that has improved although she did vomit one time at 5:00 this morning. Patient denies any diarrhea. Patient reports fever of 102 yesterday. Patient denies any cough or cold symptoms. Patient is concerned that she might be and would like to be tested. (HASMUKH BARAHONA) - Related Data Allergies/Adverse Reactions: latex Allergy (Verified 06/22/17 17:06) Penicillins Allergy (Verified 06/22/17 17:06) Past Medical History - General Information source: Patient Last Menstrual Period: In May - Social History Smoking Status: Never Smoker Frequency of alcohol use: None Drug Abuse: None Occupation: [employer] Family History: Reviewed & Not Pertinent Pulmonary Medical History: Reports: Hx Asthma Renal/ Medical History: Denies: Hx Peritoneal Dialysis Psychiatric Medical History: Reports: Hx Attention Deficit Hyperactivity Disorder, Hx Bipolar Disorder, Hx Depression Past Surgical History: Reports: Hx Section <HASMUKH BARAHONA - Last Filed: 06/23/17 09:19> Review of Systems - Review of Systems Constitutional: Fever EENT: No symptoms reported Cardiovascular: No symptoms reported. denies: Chest pain Respiratory: No symptoms reported. denies: Cough, Short of breath Gastrointestinal: Abdominal pain, Vomiting, Poor appetite. denies: Diarrhea Genitourinary: No symptoms reported. denies: Dysuria, Flank pain Female Genitourinary: No symptoms reported. denies: Vaginal bleeding Musculoskeletal: No symptoms reported Skin: No symptoms reported Hematologic/Lymphatic: No symptoms reported Neurological/Psychological: No symptoms reported <HASMUKH BARAHONA - Last Filed: 06/23/17 09:19> Physical Exam - General General appearance: Appears well, Alert In distress: None - HEENT Head: Normocephalic, Atraumatic Eyes: Normal Conjunctiva: Normal Nasal: Normal Mouth/Lips: Normal Mucous membranes: Normal Neck: Normal, Supple. No: Lymphadenopathy, Meningismus - Respiratory Respiratory status: No respiratory distress Chest status: Nontender Breath sounds: Normal. No: Rales, Rhonchi, Stridor, Wheezing Chest palpation: Normal - Cardiovascular Rhythm: Regular Heart sounds: S1 appreciated, S2 appreciated Murmur: No - Abdominal Distension: No distension Bowel sounds: Normal Tenderness: Tender - Generalized abdominal tenderness, no focal area of tenderness Organomegaly: No organomegaly - Back Back: Normal, Nontender. No: CVA tenderness - Extremities General upper extremity: Normal inspection, Normal ROM General lower extremity: Normal inspection, Normal ROM - Neurological Neuro grossly intact: Yes Cognition: Normal Efrain Coma Scale Eye Opening: Spontaneous [place] Coma Scale Verbal: Oriented [place] Coma Scale Motor: Obeys Commands Efrain Coma Scale Total: 15 - Psychological Associated symptoms: Normal affect, Normal mood - Skin Skin Temperature: Warm Skin Moisture: Dry Skin Color: Normal <HASMUKH BARAHONA - Last Filed: 06/23/17 09:19> - Vital signs Vitals: Temp Pulse Resp BP Pulse Ox 98.5 F 80 13 107/55 L 98 06/22/17 17:10 06/22/17 17:10 06/22/17 17:10 06/22/17 17:10 06/22/17 17:10 Course - Laboratory Result Diagrams: 06/22/17 19:52 06/22/17 19:52 - Diagnostic Test Radiology reviewed: Image reviewed, Reports reviewed <VAISHALI ROQUE - Last Filed: 06/22/17 23:38> - Laboratory Result Diagrams: 06/22/17 19:52 06/22/17 19:52 <BROOKLYNHASMUKH Story - Last Filed: 06/23/17 09:19> - Re-evaluation Re-evalutation: 06/22/17 23:42 Patient is resting comfortably after her pain and nausea medicine. Discussed lab values and CT with patient and written report of lab values and CT report given to patient. No acute changes on the CAT scan. Will discharge patient home with a prescription for Zofran and a list of the local primary doctors to follow up. (VAISHALI ROQUE) 06/22/17 20:56 Patient complains of continued diffuse abdominal tenderness as well as nausea. Additional medications ordered Bedside report and handoff given to Gunjan Roque [employer] (HASMUKH BARAHONA) - Vital Signs Vital signs: Temp Pulse Resp BP Pulse Ox 97.9 F 61 13 94/53 L 98 06/22/17 23:58 06/22/17 23:58 06/22/17 17:10 06/22/17 23:58 06/22/17 23:58 - Laboratory Laboratory results interpreted by me: 06/22/17 06/22/17 18:26 19:52 RBC 5.33 H RDW 15.5 H Urine Blood SMALL H Urine Urobilinogen 4.0 H Ur Leukocyte Esterase MODERATE H Discharge <VAISHALI ROQUE - Last Filed: 06/22/17 23:38> <HASMUKH BARAHONA - Last Filed: 06/23/17 09:19> - Discharge Clinical Impression: Abdominal pain Qualifiers: Abdominal location: unspecified location Qualified Code(s): R10.9 - Unspecified abdominal pain Nausea and vomiting Qualifiers: Vomiting type: unspecified Vomiting Intractability: non-intractable Qualified Code(s): R11.2 - Nausea with vomiting, unspecified Condition: Stable Disposition: HOME, SELF-CARE Instructions: Family Physicians / Practices Additional Instructions: ABDOMINAL PAIN: There are many causes of abdominal pain. Pain can mean a serious problem requiring surgery (such as appendicitis). It can also be an innocent problem that goes away on its own (such as a viral infection). Often, time must pass to determine the cause of pain. The physician does not feel that hospitalization is necessary, at present. Things may change within the next 24 hours. Call the doctor or come back for re- examination if any problems occur, such as: (1) Pain that becomes more severe, steady, or becomes concentrated in one specific area. Also, pain that is more severe with movement or coughing. (2) Vomiting that persists or becomes more frequent. (3) Blood in the vomitus, urine, or bowel movements. Blood in the stool may have a tarry or black appearance. (4) Shaking chills or fever greater than 100 degrees F. (5) The abdomen becomes more distended or swollen. (6) Bowel movements cease. (7) Failure to improve as expected. NORMAL EXAM AND WORKUP: At this time, your examination and workup show no significant abnormality. No significant abnormal physical findings are noted. All laboratory, EKG, and imaging (x-ray, CT scans, ultrasound) studies that were ordered show no significant abnormality. Although your examination and all studies that were ordered showed no significant abnormal finding, there are no examinations and no studies that are 100% accurate. There is always the possibility that some abnormality could exist and not be detected with physical examination or within the limits and capabilities of laboratory and other studies. You should return or follow up as you were instructed on your visit today for further evaluation if your symptoms do not resolve. PAIN MEDICATION INJECTION: You have received an injection of a pain medication. You should experience significant pain relief within 45 minutes. This drug is a narcotic - - it will impair your judgement, slow your reaction time and make you sleepy ( as well as relieve your pain). Narcotics also can cause nausea. You should not drive, work with machinery, or perform any task requiring mental alertness until all effects of the medication are gone -- six to eight hours. Do not take any alcohol, or sedatives, and do not take any other medication without checking with your physician. ANTINAUSEA MEDICATION: You have been given a medication to suppress nausea and vomiting. This type of medication can be given as a shot, pill, or suppository. It will usually last for many hours. Pills and shots usually last six to eight hours, suppositories last about 12 hours. For the typical illness, only one or two doses of the medication may be necessary. Mild lightheadedness may occur. This type of medicine can cause drowsiness. Do not drive or operate dangerous machinery while under its influence. Do not mix with alcohol. See your doctor at once if you have muscle spasms or tightness, or uncontrollable motions (particularly of the neck, mouth, or jaw). Persistent vomiting or severe lightheadedness should also be evaluated by the physician. FOLLOW-UP CARE: If you have been referred to a physician for follow-up care, call the physician s office for an appointment as you were instructed or within the next two days. If you experience worsening or a significant change in your symptoms, notify the physician immediately or return to the Emergency Department at any time for re-evaluation. Prescriptions: Ondansetron [Zofran Odt 4 mg Tablet] 1 tab PO Q6H #15 tab.rapdis Forms: Return to Work
[2017-06-22 18:44] LABS: APPEARANCE,URINE SLIGHTLY-CLOUDY; BILIRUBIN,URINE NEGATIVE (NEGATIVE); COLOR,URINE YELLOW; GLUCOSE, URINE NEGATIVE (NEGATIVE); KETONES,URINE NEGATIVE (NEGATIVE); LEUKOCYTE ESTERASE,URINE MODERATE (NEGATIVE); NITRITE,URINE NEGATIVE (NEGATIVE); PROTEIN,URINE NEGATIVE (NEGATIVE); URINE SPECIFIC GRAVITY 1.029
[2017-06-22] MEDS ORDERED: NORMAL SALINE 1000 ML 1,000 ML IV ONE (19:42)
[2017-06-22 20:04] LABS: ABSOLUTE BASOPHILS # (AUTO) 0.1 10^3/uL (0.0-0.2); ABSOLUTE EOSINOPHILS # (AUTO) 0.2 10^3/uL (0.0-0.6); ABSOLUTE LYMPHOCYTES (AUTO) 3.5 10^3/uL (0.5-4.7); ABSOLUTE NEUT (AUTO) 4.9 10^3/uL (1.7-8.2); BASOPHILS % (AUTO) 0.9 % (0-2); EOSINOPHILS % (AUTO) 1.7 % (0-6); HEMOGLOBIN 15.5 g/dL (12.0-15.5); MEAN CORPUSCULAR HEMOGLOBIN 29.1 pg (27.0-33.4); MEAN CORPUSCULAR HGB CONC 34.5 g/dL (32.0-36.0); MEAN CORPUSCULAR VOLUME 84 fl (80-97); MONOCYTES % (AUTO) 10.7 % (3-13); PLATELET COUNT 247 10^3/uL (150-450); RED BLOOD COUNT 5.33 10^6/uL (3.72-5.28); RED CELL DISTRIBUTION WIDTH 15.5 % (11.5-14.0); SEGMENTED NEUTROPHILS % (AUTO) 50.7 % (42-78); TOTAL CELLS COUNTED % (AUTO) 100 %; WHITE BLOOD COUNT 9.6 10^3/uL (4.0-10.5)
[2017-06-22 20:40] LABS: ALANINE AMINOTRANSFERASE 20 U/L (9-52); ALBUMIN 4.9 g/dL (3.5-5.0); ALKALINE PHOSPHATASE 78 U/L (38-126); ANION GAP 15 (5-19); ASPARTATE AMINO TRANSFERASE 20 U/L (14-36); BILIRUBIN,DIRECT 0.3 mg/dL (0.0-0.4); BILIRUBIN,TOTAL 0.3 mg/dL (0.2-1.3); BLOOD UREA NITROGEN 14 mg/dL (7-20); CALCIUM 10.1 mg/dL (8.4-10.2); CARBON DIOXIDE 24 mmol/L (22-30); CHLORIDE 105 mmol/L (98-107); GLUCOSE 76 mg/dL (75-110); LIPASE 80.1 U/L (23-300); POTASSIUM 3.9 mmol/L (3.6-5.0); SODIUM 143.8 mmol/L (137-145); TOTAL PROTEIN 7.7 g/dL (6.3-8.2)
[2017-06-22] MEDS ORDERED: ONDANSETRON HCL INJ/PF 4 MG/2 ML SDV IV ONE (20:53)
[2017-06-22] MEDS ORDERED: MORPHINE SULFATE 10 MG/ML INJ IV ONE (20:55)
[2017-06-22] MEDS ORDERED: NORMAL SALINE 1000 ML 1,000 ML IV PRN (21:09)
--- NOTE | 2017-06-22 23:32 | RADIOLOGY REPORT (SQ) ---
EXAM DESCRIPTION: CT ABD/PELVIS WITH IV ONLY CLINICAL HISTORY: 22 years Female, diffuse abd pain, hx fever COMPARISON: None. TECHNIQUE: No contrast. Coronal and sagittal reformat. This exam was performed according to our departmental dose-optimization program, which includes automated exposure control, adjustment of the mA and/or kV according to patient size and/or use of iterative reconstruction technique. FINDINGS: No acute findings. Normal appendix. No significant free fluid. Minimal lumbar levoconvex. Mild T12-L1 disc desiccation. Inferior thorax, liver, gallbladder, pancreas, spleen, adrenals, renal system, gastrointestinal tract, pelvic organs, lymphatics, vasculature, and musculoskeleton appear otherwise unremarkable. IMPRESSION: No acute findings.
[2017-06-23 00:01] VITALS: BP 94/53
== END 2017-06-22 23:55 | disposition home or self-care (01) ==
LOC: ER 17:04
DX: R10.84 Generalized abdominal pain (principal); R11.2 Nausea with vomiting, unspecified; R50.9 Fever, unspecified; J45.909 Unspecified asthma, uncomplicated; R63.0 Anorexia; Z32.00 Encounter for pregnancy test, result unknown; Z91.040 Latex allergy status; Z88.0 Allergy status to penicillin
CPT/HCPCS: 99284; 96361; 96374; 96375; 36415; 87086; 83690; 84703; 85025; 80053; 81001; 74177; J2270; J2405; J7030

== ENCOUNTER 2017-08-04 16:35 | Emergency (ER) | payer MEDICARE, OTHER ==
[2017-08-04] MEDS ORDERED: BENZONATATE 100 MG CAPSULE PO ONE (17:26)
--- NOTE | 2017-08-04 17:33 | ER Document Report ---
ED General - General Chief Complaint: STD Exposure Stated Complaint: COUGH Time Seen by Provider: 08/04/17 17:11 Mode of Arrival: Ambulatory Information source: Patient TRAVEL OUTSIDE OF THE [place] IN LAST 30 DAYS: No - HPI Patient complains to provider of: Cough, fever, gonorrhea exposure Onset/Duration: Gradual Quality of pain: Achy Severity: Mild Associated symptoms: Productive cough, Fever Exacerbated by: Denies Relieved by: Denies Notes: Patient is a 22-year-old female with a history of asthma who comes to the emergency room today complaining of 2-3 day history of productive cough with fever yesterday, cough is productive of thick yellowish colored phlegm at times , she has used her albuterol inhaler at home with minimal relief of symptoms, she denies any sick contacts with similar symptoms recently, patient states that while she was on her way to the emergency room to get checked out for the cough she received a call from her boyfriend who told her that he tested positive for gonorrhea today, she denies any abnormal vaginal discharge, no dysuria or hematuria, she does report having some mild lower abdominal/pelvic cramping, no vaginal bleeding - Related Data Allergies/Adverse Reactions: latex Allergy (Verified 08/04/17 16:40) Penicillins Allergy (Verified 08/04/17 16:40) Past Medical History - General Information source: Patient - Social History Smoking Status: Current Every Day Smoker Chew tobacco use (# tins/day): No Frequency of alcohol use: None Drug Abuse: None Family History: Reviewed & Not Pertinent Patient has suicidal ideation: No Patient has homicidal ideation: No Pulmonary Medical History: Reports: Hx Asthma Renal/ Medical History: Denies: Hx Peritoneal Dialysis Psychiatric Medical History: Reports: Hx Attention Deficit Hyperactivity Disorder, Hx Bipolar Disorder, Hx Depression Past Surgical History: Reports: Hx Section Review of Systems - Review of Systems Constitutional: Chills, Fever EENT: No symptoms reported Cardiovascular: No symptoms reported Respiratory: Cough Gastrointestinal: Abdominal pain Genitourinary: No symptoms reported Female Genitourinary: No symptoms reported Musculoskeletal: No symptoms reported Skin: No symptoms reported Hematologic/Lymphatic: No symptoms reported Neurological/Psychological: No symptoms reported Physical Exam - Vital signs Vitals: Temp Pulse Resp BP Pulse Ox 98.4 F 93 18 121/78 100 08/04/17 16:47 08/04/17 16:47 08/04/17 16:47 08/04/17 16:47 08/04/17 16:47 Interpretation: Normal - General General appearance: Appears well, Alert - HEENT Head: Normocephalic, Atraumatic Eyes: Normal Pupils: PERRL - Respiratory Respiratory status: No respiratory distress Chest status: Nontender Breath sounds: Nonproductive cough Chest palpation: Normal - Cardiovascular Rhythm: Regular Heart sounds: Normal auscultation Murmur: No - Abdominal Inspection: Normal Distension: No distension Bowel sounds: Normal Tenderness: Tender - Suprapubic Organomegaly: No organomegaly - Back Back: Normal, Nontender - Extremities General upper extremity: Normal inspection, Nontender, Normal color, Normal ROM , Normal temperature General lower extremity: Normal inspection, Nontender, Normal color, Normal ROM , Normal temperature, Normal weight bearing. No: Joey's sign - Neurological Neuro grossly intact: Yes Cognition: Normal Orientation: AAOx4 [place] Coma Scale Eye Opening: Spontaneous [place] Coma Scale Verbal: Oriented [place] Coma Scale Motor: Obeys Commands [place] Coma Scale Total: 15 Speech: Normal Motor strength normal: LUE, RUE, LLE, RLE Sensory: Normal - Psychological Associated symptoms: Normal affect, Normal mood - Skin Skin Temperature: Warm Skin Moisture: Dry Skin Color: Normal Course - Re-evaluation Re-evalutation: 08/04/17 17:49 Imaging findings discussed with patient at bedside which are unremarkable, as her physical exam findings, symptoms consistent with viral illness, patient also concerned about exposure to gonorrhea, I explained to patient that the test will take several hours to confirm but that I can treat her and call her later with results, even if the tests are negative she does report exposure to gonorrhea that she found out about today, therefore she will be treated with Rocephin and azithromycin, provided with a prescription for anti-tussive medication and instructions for follow-up, patient acknowledges understanding and agreement with this plan 08/04/17 20:32 Patient was contacted at number provided through registration and informed of her positive gonorrhea results but advised that she was appropriately treated in the emergency department, advised to have any partners tested and treated and to refrain from unprotected sex in the future, patient acknowledges understanding - Vital Signs Vital signs: Temp Pulse Resp BP Pulse Ox 98.4 F 90 18 120/72 99 08/04/17 18:05 08/04/17 18:05 08/04/17 18:05 08/04/17 18:05 08/04/17 18:05 - Laboratory Laboratory results interpreted by me: 08/04/17 08/04/17 17:25 17:25 Ur Leukocyte Esterase TRACE H N.gonorrhoeae DNA (PCR) DETECTED H - Diagnostic Test Radiology reviewed: Image reviewed, Reports reviewed Discharge - Discharge Clinical Impression: Viral upper respiratory illness, STD exposure Condition: Stable Disposition: HOME, SELF-CARE Instructions: Gonorrhea ([facility]), Upper Respiratory Illness ([facility]), Viral Syndrome ([facility]) Additional Instructions: Follow up with your primary care provider in one to 2 days. Return to the emergency room immediately if symptoms worsen or any additional concerns. Prescriptions: Benzonatate [Tessalon Perles 100 mg Capsule] 100 mg PO ASDIR PRN #40 capsule PRN Reason: Referrals: LOCALMD,NO [Primary Care Provider] - Follow up as needed
[2017-08-04 17:42] LABS: APPEARANCE,URINE CLEAR; BILIRUBIN,URINE NEGATIVE (NEGATIVE); COLOR,URINE STRAW; GLUCOSE, URINE NEGATIVE (NEGATIVE); KETONES,URINE NEGATIVE (NEGATIVE); LEUKOCYTE ESTERASE,URINE TRACE (NEGATIVE); NITRITE,URINE NEGATIVE (NEGATIVE); PROTEIN,URINE NEGATIVE (NEGATIVE); URINE SPECIFIC GRAVITY 1.008; UROBILINOGEN,URINE NEGATIVE mg/dL (<2.0)
--- NOTE | 2017-08-04 17:42 | RADIOLOGY REPORT (SQ) ---
EXAM DESCRIPTION: CHEST PA/LAT COMPLETED DATE/TIME: 08/04/2017 5:35 pm REASON FOR STUDY: cough COMPARISON: None. EXAM PARAMETERS: NUMBER OF VIEWS: two views TECHNIQUE: Digital Frontal and Lateral radiographic views of the chest acquired. RADIATION DOSE: NA LIMITATIONS: none FINDINGS: LUNGS AND PLEURA: No opacities, masses or pneumothorax. No pleural effusion. MEDIASTINUM AND HILAR STRUCTURES: No masses or contour abnormalities. HEART AND VASCULAR STRUCTURES: Heart normal size. No evidence for failure. BONES: No acute findings. HARDWARE: None in the chest. OTHER: No other significant finding. IMPRESSION: NO SIGNIFICANT RADIOGRAPHIC FINDING IN THE CHEST. TECHNICAL DOCUMENTATION: JOB ID: [id number] [employer]- All Rights Reserved Reading location - IP/workstation name: [email or web address]
[2017-08-04] MEDS ORDERED: AZITHROMYCIN 250 MG TABLET PO ONE (17:48)
[2017-08-04] MEDS ORDERED: CEFTRIAXONE INJ 250 MG VIAL IM ONE (17:48)
[2017-08-04] MEDS ORDERED: LIDOCAINE 1% INJ-PF (10 MG/ML) 30 ML SDV INJ ONE (18:05)
[2017-08-04 18:18] VITALS: BP 120/72
[2017-08-04 19:09] LABS: CHLAM PCR NOT DETECTED (NOT DETECT); GON PCR DETECTED (NOT DETECT)
== END 2017-08-04 18:31 | disposition home or self-care (01) ==
LOC: ER 16:35
DX: J06.9 Acute upper respiratory infection, unspecified (principal); B97.89 Other viral agents as the cause of diseases classified elsewhere; A54.9 Gonococcal infection, unspecified; R05 Cough; R50.9 Fever, unspecified; J45.909 Unspecified asthma, uncomplicated; R10.2 Pelvic and perineal pain; F17.200 Nicotine dependence, unspecified, uncomplicated; Z91.040 Latex allergy status; Z88.0 Allergy status to penicillin
CPT/HCPCS: 99283; 96372; 81025; 81001; 87491; 87591; 71046; A9270 ×2; J3490; J0696

== ENCOUNTER 2017-11-19 10:23 | Emergency (ER) | payer MEDICARE, MEDICAID ==
--- NOTE | 2017-11-19 10:51 | ER Document Report ---
ED General - General Chief Complaint: Sore Throat Stated Complaint: SORE THROAT, RASH Time Seen by Provider: 11/19/17 10:36 Mode of Arrival: Ambulatory Information source: Patient Notes: 22-year-old female presented to ED for complaint of sore throat cough congestion rash to abdomen and legs vaginal discharge on her. With vaginal odor and vaginal pain pain with urination wants to be checked for STDs. TRAVEL OUTSIDE OF THE [place] IN LAST 30 DAYS: No - HPI Onset: Other - Rash for 2 days urinary symptoms for a couple days Onset/Duration: Gradual Quality of pain: Burning, Other - Sore throat Severity: Severe Pain Level: 5 Associated symptoms: Body/muscle aches, Nonproductive cough, Rhinnorhea, Sinus pain/drainage, Sore throat, Other - Vaginal itching, vaginal pain, 8 pain with urination, frequency and urgency, rash to the abdomen and legs Exacerbated by: Other - Urination or trying to eat Relieved by: Denies Similar symptoms previously: Yes Recently seen / treated by doctor: No - Related Data Allergies/Adverse Reactions: latex Allergy (Verified 08/04/17 16:40) Penicillins Allergy (Verified 08/04/17 16:40) Past Medical History - General Information source: Patient - Social History Smoking Status: Current Every Day Smoker Cigarette use (# per day): Yes - 5 cigarettes a day Chew tobacco use (# tins/day): No Smoking Education Provided: Yes - 4 minutes Frequency of alcohol use: None Drug Abuse: None Occupation: [employer] Lives with: Family Family History: Reviewed & Not Pertinent Patient has suicidal ideation: No Patient has homicidal ideation: No - Past Medical History Cardiac Medical History: Reports: None Pulmonary Medical History: Reports: Hx Asthma EENT Medical History: Reports: None Neurological Medical History: Reports: None Endocrine Medical History: Reports: None Renal/ Medical History: Reports: None Malignancy Medical History: Reports: None GI Medical History: Reports: None Musculoskeltal Medical History: Reports Hx Musculoskeletal Trauma Skin Medical History: Reports None Psychiatric Medical History: Reports: Hx Attention Deficit Hyperactivity Disorder, Hx Bipolar Disorder, Hx Depression Traumatic Medical History: Reports: Hx Fractures - Nose Infectious Medical History: Reports: None Past Surgical History: Reports: Hx Section Review of Systems - Review of Systems Constitutional: Recent illness EENT: Nose congestion, Nose discharge, Sinus pressure, Sinus discharge, Throat pain Cardiovascular: No symptoms reported Respiratory: No symptoms reported Gastrointestinal: No symptoms reported Genitourinary: Burning, Frequency, Urgency Female Genitourinary: Vaginal discharge, Vaginal odor Musculoskeletal: No symptoms reported Skin: Rash - Legs and abdomen Hematologic/Lymphatic: No symptoms reported Neurological/Psychological: No symptoms reported -: Yes All other systems reviewed and negative Physical Exam - Vital signs Vitals: Temp Pulse Resp BP Pulse Ox 98.5 F 100 20 111/73 99 11/19/17 10:30 11/19/17 10:30 11/19/17 10:30 11/19/17 10:30 11/19/17 10:30 Interpretation: Normal - General General appearance: Appears well, Alert - HEENT Head: Normocephalic, Atraumatic Eyes: Normal Pupils: PERRL Ears: Normal External canal: Normal Tympanic membrane: Normal Sinus: Normal Nasal: Purulent discharge, Swelling Mouth/Lips: Normal Mucous membranes: Normal Pharynx: Erythema, Post nasal drainage, Tonsillar hypertrophy. No: Exudate, Retropharyngeal abscess, Uvular edema, Potential airway comprom. Neck: Anterior cervical chain - Respiratory Respiratory status: No respiratory distress Chest status: Nontender Breath sounds: Normal, Nonproductive cough Chest palpation: Normal - Cardiovascular Rhythm: Regular Heart sounds: Normal auscultation Murmur: No - Abdominal Inspection: Other - Distension: No distension Bowel sounds: Normal Tenderness: Nontender Organomegaly: No organomegaly - Genitourinary External exam: Normal Speculum exam: Vaginal discharge Vaginal bleeding: Moderate [place] exam: Normal - Back Back: Normal, Nontender - Extremities General upper extremity: Normal inspection, Nontender, Normal color, Normal ROM , Normal temperature General lower extremity: Normal inspection, Nontender, Normal color, Normal ROM , Normal temperature, Normal weight bearing. No: Joey's sign - Neurological Neuro grossly intact: Yes Cognition: Normal Orientation: AAOx4 [place] Coma Scale Eye Opening: Spontaneous [place] Coma Scale Verbal: Oriented [place] Coma Scale Motor: Obeys Commands [place] Coma Scale Total: 15 Speech: Normal Motor strength normal: LUE, RUE, LLE, RLE Sensory: Normal - Psychological Associated symptoms: Normal affect, Normal mood - Skin Skin Temperature: Warm Skin Moisture: Dry Skin Color: Normal Course - Re-evaluation Re-evalutation: 06/16/18 16:03 Patient was seen today for an upper respiratory infection, sore throat, skin rash to the abdomen and legs, and vaginal discharge with pain to the vaginal area. She was treated for GC and chlamydia before discharge as she did not want to wait for the results. She was informed she should call the culture line either today or tomorrow for her results. Patient was treated for cough and cold symptoms with Sudafed Mucinex and Claritin. Patient was treated with Rocephin and azithromycin while in the emergency room. - Vital Signs Vital signs: Temp Pulse Resp BP Pulse Ox 98.4 F 86 18 117/72 98 11/19/17 11:53 11/19/17 11:53 11/19/17 11:53 11/19/17 11:53 11/19/17 11:53 - Laboratory Laboratory results interpreted by me: 11/19/17 11/19/17 10:48 10:48 Urine Urobilinogen 2.0 H Ur Leukocyte Esterase TRACE H Chlamydia DNA (PCR) DETECTED H Discharge - Discharge Clinical Impression: Viral sore throat, Rash and nonspecific skin eruption URI (upper respiratory infection) Qualifiers: URI type: unspecified URI Qualified Code(s): J06.9 - Acute upper respiratory infection, unspecified Vaginitis Qualifiers: Chronicity: acute Qualified Code(s): N76.0 - Acute vaginitis Condition: Stable Disposition: HOME, SELF-CARE Instructions: Family Physicians / Practices Additional Instructions: SORE THROAT: Sore throats may be caused by viruses, bacteria, or fungi. Most are due to a virus, and must get better on their own. Bacterial sore throats, particularly those due to "strep," need treatment with antibiotics. If an antibiotic is prescribed, be sure to take the medication for a full 10 days. Failure to take the antibiotic can result in complications such as rheumatic fever. Sometimes, an injection of antibiotics is given instead of pills or liquid. This single "shot" is equal in effectiveness to the oral medication. To relieve symptoms, take acetaminophen for pain. Sip clear liquids frequently, or eat popsicles or ice chips. Anesthetic sprays or lozenges may help. Make sure the air in the room is not too dry. Avoid using decongestants or antihistamines. Call the doctor if there is no improvement in two days, or if you have difficulty breathing, increasing throat pain, high fever, rash, or frequent vomiting. UPPER RESPIRATORY ILLNESS: You have a viral infection of the respiratory passages -- a "cold." This common infection causes nasal congestion, drainage, and often sore throat and cough. It is highly contagious. The disease usually lasts about 10 to 14 days. There is no "cure" for the viral infection -- it must run its course. If there is a complication, such as bacterial infection in the nose, sinuses, middle ear, or bronchial tubes, antibiotics may be required. The antibiotics won't affect the virus. Drink plenty of fluids. A humidifier may help. An expectorant medication or decongestant may make you more comfortable. Use acetaminophen or ibuprofen for fever or aches. See the doctor if fever persists over two days, if there is any significant worsening of your symptoms, or if you simply fail to improve as expected. VAGINITIS: Your exam shows that you have vaginitis, a vaginal infection. The infection can be caused by a many different organisms, including trichomonas or Gardnerella. The usual symptoms are vaginal irritation and discharge. The treatment is usually antibiotics such as Flagyl. Laboratory tests can determine which germ is responsible. Use the medication as prescribed. Because this infection can be transmitted sexually, your sexual partner may need to be checked and treated also. If your physician has not discussed this with you, please check before resuming sexual relations. If a culture shows gonorrhea or chlamydia, the infection must be reported to the health department. Call the doctor if you develop pelvic pain, fever, or problems with urination, or if you don't improve as expected. CEPHALOSPORINS: An antibiotic of the cephalosporin class has been prescribed. This type of antibiotic covers a wide variety of infections, including those of the skin, lungs, middle ear, and urinary tract. This antibiotic is somewhat similar to the penicillin family. In rare cases , a person who is allergic to penicillin will also be allergic to this medication. If you have had a severe allergic reaction to penicillin, and have not taken this antibiotic since that time, notify your doctor. Antibiotics which cover many germs ("broad spectrum" antibiotics) are more likely to cause diarrhea or "yeast" infections. Women prone to vaginal yeast problems may suffer an attack after taking this antibiotic. In infants, oral thrush (white spots "stuck" on the cheek) or yeast diaper rash may result. See your doctor if these problems occur. Call the doctor at once if you develop hives, itching, shortness of breath , or lightheadedness. AZITHROMYCIN: Azithromycin (Zithromax) is a broad spectrum antibiotic in the same class as erythromycin. It can treat a variety of bacterial infections, but is most frequently used for respiratory infections. Azithromycin is extremely long-lasting. It accumulates in body tissues and continues to kill bacteria for many days. In order to improve absorption, Azithromycin should be taken at least one hour before or two hours after a meal. It does not have the same strong tendency to upset the stomach as erythromycin and is usually very well tolerated. Patients who have had a rash or other true allergic reactions to erythromycin should not take this medication. Call if you develop gastrointestinal distress, severe diarrhea, rash, hives, itching, or shortness of breath. DECONGESTANT MEDICATION: A decongestant medicine has been suggested. Often this medicine is combined in the same tablet with an antihistamine or expectorant. This type of medicine is helpful in treating a bad cold or sinus condition, as well as in treatment of the nasal congestion of hay fever. It is not of much benefit for lung infections. Decongestant medicines are related to stimulants. They can cause an increase in blood pressure and heart rate. Persons with heart disease and high blood pressure should not take decongestants without discussing this with the physician. If you develop palpitations, chest pain, headache, or tremors, stop the medicine and consult your physician. STEROID MEDICATION: You have been given an injection of or oral medicine of the cortisone/ steroid class. This medication is used to control inflammation or allergy. Alex t is usually only given for a short period of time, until the acute process subsides. There are usually no side effects from short-term use of cortisone-like medications. Some persons feel an increased sense of well-being and are not sleepy at bedtime. Long-term use of cortisone medications is best avoided, unless required for a severe condition. If your condition does not remit, or relapses after the course of corticosteroid medication, you should consult your physician. USE OF ACETAMINOPHEN (Tylenol): Acetaminophen may be taken for pain relief or fever control. It's much safer than aspirin, offering a wider range of "safe" dosages. It is safe during . Some brand names are Tylenol, Panadol, Datril, Anacin 3, Tempra, and Liquiprin. Acetaminophen can be repeated every four hours. The following are maximum recommended dosages: >89 pounds or adults 650 mg to 900 mg Acetaminophen can be repeated every four hours. Maximum dose not to exceed 4000 mg a day. You were given Claritin 10 mg, Sudafed 30 mg, and Mucinex 600 mg for your cough cold congestion symptoms these are all [id number]-[id number] medications that you can buy from the pharmacy. If these help your symptoms please go and get them at the drugstore. You can also use Flonase which is [id number]. Another thing to help with your sore throat is salt and soda solution gargles. Salt and soda solution 1 quart of water 1 tablespoon of salt 1 teaspoon of baking soda Mixed 3 ingredients together and boil for 1 minute Placed in a covered quart jar Use 1/2 ounce of cold solution to gargle 3 times a day SMOKING: If you smoke, you should stop smoking. The tar and chemicals in cigarette smoke are harmful. Smoking has been shown to cause: emphysema chronic bronchitis lung cancer mouth and throat cancer stomach and pancreas cancer premature aging defects In addition, smoking increases ear and lung infections in children of smokers. FOLLOW-UP CARE: If you have been referred to a physician for follow-up care, call the physician s office for an appointment as you were instructed or within the next two days. If you experience worsening or a significant change in your symptoms, notify the physician immediately or return to the Emergency Department at any time for re-evaluation. These call the culture result line that I gave you [id number] later this afternoon for your GC and chlamydia results and in 2 days for your urine culture results. Prescriptions: Prednisone [Deltasone 20 mg Tablet] 3 tab PO DAILY 3 Days tablet Forms: Smoking Cessation Education, Return to Work
[2017-11-19] MEDS ORDERED: LORATADINE 10 MG TABLET PO ONE (10:56)
[2017-11-19] MEDS ORDERED: PREDNISONE 20 MG TABLET PO ONE (10:56)
[2017-11-19] MEDS ORDERED: PSEUDOEPHEDRINE HCL 30 MG TABLET PO ONE (10:56)
[2017-11-19] MEDS ORDERED: IBUPROFEN 600 MG TABLET PO ONE (10:57)
[2017-11-19 11:09] LABS: RBCS (WET MOUNT) 4+ RBCS SEEN; T.VAGINALIS (WET MOUNT) NO TRICHOMONAS SEEN; WBCS (WET MOUNT) FEW WBCS SEEN; YEAST (WET MOUNT) NO YEAST SEEN
[2017-11-19 11:13] LABS: APPEARANCE,URINE CLEAR; BILIRUBIN,URINE NEGATIVE (NEGATIVE); COLOR,URINE YELLOW; GLUCOSE, URINE NEGATIVE (NEGATIVE); KETONES,URINE NEGATIVE (NEGATIVE); LEUKOCYTE ESTERASE,URINE TRACE (NEGATIVE); NITRITE,URINE NEGATIVE (NEGATIVE); PROTEIN,URINE NEGATIVE (NEGATIVE); URINE SPECIFIC GRAVITY 1.024
[2017-11-19] MEDS ORDERED: LIDOCAINE 1% INJ-PF (10 MG/ML) 30 ML SDV INJ ONE (11:36)
[2017-11-19] MEDS ORDERED: AZITHROMYCIN 250 MG TABLET PO ONE (11:36)
[2017-11-19] MEDS ORDERED: CEFTRIAXONE INJ 250 MG VIAL IM ONE (11:36)
[2017-11-19 12:05] VITALS: BP 117/72
[2017-11-19 12:36] LABS: CHLAM PCR DETECTED (NOT DETECT); GON PCR NOT DETECTED (NOT DETECT)
== END 2017-11-19 12:05 | disposition home or self-care (01) ==
LOC: ER 10:23
DX: J02.8 Acute pharyngitis due to other specified organisms (principal); B97.89 Other viral agents as the cause of diseases classified elsewhere; N76.0 Acute vaginitis; R21 Rash and other nonspecific skin eruption; R05 Cough; R09.81 Nasal congestion; R09.82 Postnasal drip; J35.1 Hypertrophy of tonsils; R10.2 Pelvic and perineal pain; J34.89 Other specified disorders of nose and nasal sinuses; R35.0 Frequency of micturition; R39.15 Urgency of urination; R30.0 Dysuria; F17.210 Nicotine dependence, cigarettes, uncomplicated; Z71.6 Tobacco abuse counseling; Z91.040 Latex allergy status; Z88.0 Allergy status to penicillin
CPT/HCPCS: 99406; 99283; 87070; 87086; 87210; 87880; 81025; 87077; 87088; 81001; 87186; 87491; 87591; A9270 ×5; J3490; J0696; J7512

== ENCOUNTER 2017-11-30 15:42 | Emergency (ER) | payer MEDICARE, MEDICAID ==
[2017-11-30 15:50] VITALS: BP 114/56
[2017-11-30] MEDS ORDERED: ACETAMINOPHEN 325 MG TABLET PO ONE (16:15)
--- NOTE | 2017-11-30 16:16 | ER Document Report ---
ED Medical Screen (RME) - General Chief Complaint: Abdominal Pain Stated Complaint: STOMACH PAIN/MENSTURAL ISSUES Time Seen by Provider: 11/30/17 16:10 Notes: RAPID MEDICAL EVALUATION DISCLOSURE I have seen this patient as part of a Rapid Medical Evaluation and, if applicable, placed any initially appropriate orders. The patient will be seen and fully evaluated, including a full history and physical exam, by a provider ( in Main ED or Fast Track) when a room becomes available. 22-year-old female here with complaints of lower abdominal pain ongoing for the past 2 days. The pain is worse with "everything". She states it is worse with urination eating twisting movement defecating. She reports that she has 2 uterus and wonders if there is something going on. She finished her period 3 days ago but then the bleeding started back up unexpectedly yesterday so she wonders if she could be . EXAM Mild left/right lower quadrant TTP Moderate suprapubic TTP TRAVEL OUTSIDE OF THE [place] IN LAST 30 DAYS: No - Related Data Allergies/Adverse Reactions: latex Allergy (Verified 08/04/17 16:40) Penicillins Allergy (Verified 08/04/17 16:40) Past Medical History - Social History Chew tobacco use (# tins/day): No Frequency of alcohol use: None Drug Abuse: None Pulmonary Medical History: Reports: Hx Asthma Renal/ Medical History: Denies: Hx Peritoneal Dialysis Musculoskeltal Medical History: Reports Hx Musculoskeletal Trauma Psychiatric Medical History: Reports: Hx Attention Deficit Hyperactivity Disorder, Hx Bipolar Disorder, Hx Depression Traumatic Medical History: Reports: Hx Fractures - Nose Past Surgical History: Reports: Hx Section Physical Exam - Vital signs Vitals: Temp Pulse Resp BP Pulse Ox 99.2 F 85 16 114/56 L 98 11/30/17 15:49 11/30/17 15:49 11/30/17 15:49 11/30/17 15:49 11/30/17 15:49 Course - Vital Signs Vital signs: Temp Pulse Resp BP Pulse Ox 99.2 F 85 16 114/56 L 98 11/30/17 15:49 11/30/17 15:49 11/30/17 15:49 11/30/17 15:49 11/30/17 15:49
== END 2017-11-30 16:29 | disposition left against medical advice (07) ==
LOC: ER 15:42
DX: Z53.21 Procedure and treatment not carried out due to patient leaving prior to being seen by health care provider (principal); R10.30 Lower abdominal pain, unspecified; R10.31 Right lower quadrant pain; R10.32 Left lower quadrant pain
CPT/HCPCS: 36415; 99281

== ENCOUNTER 2018-01-10 16:40 | Emergency (ER) | payer MEDICARE, MEDICAID ==
--- NOTE | 2018-01-10 17:47 | ER Document Report ---
ED GI/ - General Chief Complaint: Sore Throat Stated Complaint: STOMACH PAIN Time Seen by Provider: 01/10/18 17:30 Mode of Arrival: Ambulatory Information source: Patient Notes: 22-year-old female presents to ED for chronic stomach pain and sore throat. She was seen here a month ago and diagnosed with chlamydia. She was treated for the chlamydia and discharged home. She states that the pain got better but then the got worse again last week. She states she was constipated so she took some Kaopectate and then ended up having diarrhea and more stomach pain. She states it feels almost like when she had the chlamydia so she made her boyfriend go to the [facility] and get checked out and she came in here and she would like to be retested for GC and chlamydia and wet mount. She states she also wants a urine rechecked. She states she also has a very sore throat. TRAVEL OUTSIDE OF THE [place] IN LAST 30 DAYS: No - HPI Patient complains to provider of: Abdominal pain, Pelvic pain, Vaginal discharge , Vaginal pain, Other - sore throat Onset: Last week Timing/Duration: Persistent Quality of pain: Burning, Sharp Severity at maximum: Severe Severity in ED: Severe Pain Level: 5 Vaginal bleeding (Compared to normal period): None Associated symptoms: Vaginal discharge, Other - pelvic pain, sore throat Exacerbated by: Walking, Other - Bowel movement, or sex Relieved by: Denies Similar symptoms previously: Yes Recently seen / treated by doctor: Yes - Related Data Allergies/Adverse Reactions: latex Allergy (Verified 08/04/17 16:40) Penicillins Allergy (Verified 08/04/17 16:40) Past Medical History - General Information source: Patient - Social History Smoking Status: Current Every Day Smoker Cigarette use (# per day): Yes - 5 cigs a day Chew tobacco use (# tins/day): No Smoking Education Provided: Yes Frequency of alcohol use: None Drug Abuse: None Occupation: [employer] Lives with: Spouse/Significant other Family History: Reviewed & Not Pertinent Patient has suicidal ideation: No Patient has homicidal ideation: No - Past Medical History Cardiac Medical History: Reports: None Pulmonary Medical History: Reports: Hx Asthma EENT Medical History: Reports: None Neurological Medical History: Reports: None Endocrine Medical History: Reports: None Renal/ Medical History: Reports: None Malignancy Medical History: Reports: None GI Medical History: Reports: None Musculoskeletal Medical History: Reports Hx Musculoskeletal Trauma Skin Medical History: Reports None Psychiatric Medical History: Reports: Hx Attention Deficit Hyperactivity Disorder, Hx Bipolar Disorder, Hx Depression Traumatic Medical History: Reports: Hx Fractures - Nose Infectious Medical History: Reports: None Past Surgical History: Reports: Hx Section Review of Systems - Review of Systems Constitutional: Chills, Fever, Recent illness EENT: Throat pain Cardiovascular: No symptoms reported Respiratory: No symptoms reported Gastrointestinal: No symptoms reported Genitourinary: Burning Female Genitourinary: Other - Pelvic pain and vaginal pain Musculoskeletal: No symptoms reported Skin: No symptoms reported Hematologic/Lymphatic: No symptoms reported Neurological/Psychological: No symptoms reported Physical Exam - Vital signs Vitals: Temp Pulse Resp BP Pulse Ox 99.0 F 103 H 16 112/61 99 01/10/18 16:46 01/10/18 16:46 01/10/18 16:46 01/10/18 16:46 01/10/18 16:46 Interpretation: Normal - General General appearance: Appears well, Alert - HEENT Head: Normocephalic, Atraumatic Eyes: Normal Pupils: PERRL - Respiratory Respiratory status: No respiratory distress Chest status: Nontender Breath sounds: Normal Chest palpation: Normal - Cardiovascular Rhythm: Regular Heart sounds: Normal auscultation Murmur: No - Abdominal Inspection: Normal Distension: No distension Bowel sounds: Normal Tenderness: Nontender Organomegaly: No organomegaly - Genitourinary External exam: Normal Speculum exam: Vaginal discharge Vaginal bleeding: None Bimanuel exam: Adnexal tenderness - Back Back: Normal, Nontender - Extremities General upper extremity: Normal inspection, Nontender, Normal color, Normal ROM , Normal temperature General lower extremity: Normal inspection, Nontender, Normal color, Normal ROM , Normal temperature, Normal weight bearing. No: Joey's sign - Neurological Neuro grossly intact: Yes Cognition: Normal Orientation: AAOx4 [place] Coma Scale Eye Opening: Spontaneous [place] Coma Scale Verbal: Oriented [place] Coma Scale Motor: Obeys Commands E[place] Coma Scale Total: 15 Speech: Normal Motor strength normal: LUE, RUE, LLE, RLE Sensory: Normal - Psychological Associated symptoms: Normal affect, Normal mood - Skin Skin Temperature: Warm Skin Moisture: Dry Skin Color: Normal Course - Re-evaluation Re-evalutation: 01/10/18 18:35 Discussed results with patient. Patient was given azithromycin 500 mg in the emergency room and discharged home with prescription for azithromycin 250 daily for the next 4 days. Patient has been instructed to throw away her toothbrush is for the next 3 days and they get new toothbrushes. Patient verbalized understanding of instructions and agreement with treatment plan. - Vital Signs Vital signs: Temp Pulse Resp BP Pulse Ox 99.0 F 103 H 16 112/61 99 01/10/18 16:46 01/10/18 16:46 01/10/18 16:46 01/10/18 16:46 01/10/18 16:46 - Laboratory Laboratory results interpreted by me: 01/10/18 17:35 Urine Urobilinogen 2.0 H Ur Leukocyte Esterase MODERATE H Discharge - Discharge Clinical Impression: Strep pharyngitis, Pelvic pain Condition: Stable Disposition: HOME, SELF-CARE Instructions: Family Physicians / Practices Additional Instructions: STREP THROAT: Your sore throat is due to the streptococcus germ (strep throat). Strep throat usually makes you feel quite ill with fever and aches, headache, swollen sore throat, and tender bumps under the angles of the jaw. Strep throat requires antibiotic treatment. Although the sore throat may go away by itself, complications such as rheumatic fever, kidney disease, or throat abscess can occur. We usually prescribe antibiotics by mouth. Be sure to take the medicine until it's gone. If you stop early, the strep may come back. If you are vomiting, are severely ill, or can't remember to take pills, we can give you an antibiotic shot. Take acetaminophen or ibuprofen for pain and fever. Sip frequent clear liquids, or use popsicles or ice chips. Anesthetic sprays or lozenges may help. Make sure the air in the room is not too dry. Avoid using decongestants or antihistamines. Call the doctor if there is no improvement in three days, or if you have difficulty breathing, increasing throat pain, high fever, rash, or frequent vomiting. These change her toothbrush daily for the next 3 days. This means to throw away your toothbrush each day for the next 3 days. PELVIC PAIN: There are many causes of pain in the pelvic area. The cause could be the tubes, ovaries, uterus, intestines, appendix, pelvic muscles and connective tissue, or the urinary tract. The cause of your pelvic pain is not clear. However, it seems safe to treat you outside the hospital. If the pain sounds like a temporary problem, we sometimes wait to see if it goes away. Other patients may need additional tests, such as pelvic ultrasound or cultures. Conditions may change. Call us or come back for reexamination if any problems occur, such as: (1) Pain that becomes more severe, steady, or becomes concentrated in one specific area. Also, pain that is more severe with movement or coughing. (2) Vomiting that persists or becomes more frequent. (3) Blood in the vomitus, urine, or bowel movements. Blood in the stool may have a tarry or black appearance. (4) Shaking chills or fever greater than 100 degrees. (5) The abdomen becomes more distended or swollen. (6) Bowel movements cease. (7) Heavy vaginal bleeding. STEROID MEDICATION: You have been given an injection of medicine of the cortisone/steroid class. This medication is used to control inflammation or allergy. It is often continued as a pill for a short period of time, until the acute process subsides. There are usually no side effects from short-term use of cortisone-like medications. Some persons feel an increased sense of well-being and are not sleepy at bedtime. Long-term use of cortisone medications is best avoided, unless required for a severe condition. If your condition does not remit, or relapses after the course of corticosteroid medication, you should consult your physician. Azithromycin Azithromycin (Zithromax) is a broad spectrum antibiotic in the same class as erythromycin. It can treat a variety of bacterial infections, but is most frequently used for respiratory infections. Azithromycin is extremely long-lasting. It accumulates in body tissues and continues to kill bacteria for many days. In order to improve absorption, Azithromycin should be taken at least one hour before or two hours after a meal. It does not have the same strong tendency to upset the stomach as erythromycin and is usually very well tolerated. Patients who have had a rash or other true allergic reactions to erythromycin should not take this medication. Call if you develop gastrointestinal distress, severe diarrhea, rash, hives, itching, or shortness of breath. FOLLOW-UP CARE: If you have been referred to a physician for follow-up care, call the physician s office for an appointment as you were instructed or within the next two days. If you experience worsening or a significant change in your symptoms, notify the physician immediately or return to the Emergency Department at any time for re-evaluation. Prescriptions: Azithromycin [Zithromax 250 mg Tablet] 250 mg PO DAILY #4 tablet
[2018-01-10 18:03] LABS: BACTERIA (WET MOUNT) 3+ BACTERIA SEEN; EPITHELIALS (WET MOUNT) 3+ EPITHELIALS SEEN; T.VAGINALIS (WET MOUNT) NO TRICHOMONAS SEEN; WBCS (WET MOUNT) 3+ WBCS SEEN; YEAST (WET MOUNT) NO YEAST SEEN
[2018-01-10 18:09] LABS: APPEARANCE,URINE SLIGHTLY-CLOUDY; BILIRUBIN,URINE NEGATIVE (NEGATIVE); COLOR,URINE YELLOW; GLUCOSE, URINE NEGATIVE (NEGATIVE); KETONES,URINE NEGATIVE (NEGATIVE); LEUKOCYTE ESTERASE,URINE MODERATE (NEGATIVE); NITRITE,URINE NEGATIVE (NEGATIVE); PROTEIN,URINE NEGATIVE (NEGATIVE); URINE SPECIFIC GRAVITY 1.018
[2018-01-10] MEDS ORDERED: AZITHROMYCIN 250 MG TABLET PO ONE (18:26)
[2018-01-10] MEDS ORDERED: DEXAMETHASONE SOD PHOS INJ 10 MG/1 ML VIAL IM ONE (18:29)
[2018-01-10 18:53] VITALS: BP 114/74
[2018-01-10 19:28] LABS: CHLAM PCR DETECTED (NOT DETECT); GON PCR DETECTED (NOT DETECT)
[2018-01-10] MEDS ORDERED: LIDOCAINE 1% INJ-PF (10 MG/ML) 30 ML SDV INJ ONE (21:11)
[2018-01-10] MEDS ORDERED: CEFTRIAXONE INJ 250 MG VIAL IM ONE (21:11)
[2018-01-10] MEDS ORDERED: DOXYCYCLINE HYCLATE 100 MG TABLET PO ONE (21:13)
== END 2018-01-10 18:52 | disposition home or self-care (01) ==
LOC: ER 16:40
DX: J02.0 Streptococcal pharyngitis (principal); R10.2 Pelvic and perineal pain; R10.9 Unspecified abdominal pain; G89.29 Other chronic pain; R19.7 Diarrhea, unspecified; K59.00 Constipation, unspecified; N89.8 Other specified noninflammatory disorders of vagina; F17.210 Nicotine dependence, cigarettes, uncomplicated; J45.909 Unspecified asthma, uncomplicated
CPT/HCPCS: 99283; 96372; 87086; 87210; 87880; 81025; 81001; 87491; 87591; A9270 ×2; J3490; J0696; J1100

== ENCOUNTER 2018-02-02 16:44 | Emergency (ER) | payer MEDICARE, MEDICAID ==
[2018-02-02 16:49] VITALS: BP 113/74
--- NOTE | 2018-02-02 17:02 | ER Document Report ---
ED GI/ - General Chief Complaint: Vaginal Discharge Stated Complaint: ABDOMINAL PAIN Time Seen by Provider: 02/02/18 17:02 Mode of Arrival: Ambulatory Information source: Patient Notes: 22-year-old female complaining of recurrent vaginal discharge with an odor. She needs to leave soon to go to work. She had gonorrhea and/or chlamydia in August and November. She states she gets these infections from her spouse who was also treated. No pelvic pain. No fever or chills. No flank pain. TRAVEL OUTSIDE OF THE [place] IN LAST 30 DAYS: No - Related Data Allergies/Adverse Reactions: latex Allergy (Verified 02/02/18 16:45) Penicillins Allergy (Verified 02/02/18 16:45) Past Medical History - General Information source: Patient - Social History Smoking Status: Current Every Day Smoker Chew tobacco use (# tins/day): No Frequency of alcohol use: Occasional Drug Abuse: None Lives with: Family Family History: Reviewed & Not Pertinent Patient has suicidal ideation: No Patient has homicidal ideation: No Pulmonary Medical History: Reports: Hx Asthma Renal/ Medical History: Denies: Hx Peritoneal Dialysis Musculoskeletal Medical History: Reports Hx Musculoskeletal Trauma Psychiatric Medical History: Reports: Hx Attention Deficit Hyperactivity Disorder, Hx Bipolar Disorder, Hx Depression Traumatic Medical History: Reports: Hx Fractures - Nose Past Surgical History: Reports: Hx Section Review of Systems - Review of Systems Constitutional: No symptoms reported EENT: No symptoms reported Cardiovascular: No symptoms reported Respiratory: No symptoms reported Gastrointestinal: No symptoms reported Genitourinary: No symptoms reported Female Genitourinary: See HPI Musculoskeletal: No symptoms reported Skin: No symptoms reported Hematologic/Lymphatic: No symptoms reported Neurological/Psychological: No symptoms reported Physical Exam - Vital signs Vitals: Temp Pulse Resp BP Pulse Ox 98.9 F 92 16 113/74 98 02/02/18 16:48 02/02/18 16:48 02/02/18 16:48 02/02/18 16:48 02/02/18 16:48 Interpretation: Normal - General General appearance: Appears well, Alert In distress: None - HEENT Head: Normocephalic, Atraumatic Eyes: Normal Pupils: PERRL Neck: Supple - Respiratory Respiratory status: No respiratory distress Chest status: Nontender Breath sounds: Normal Chest palpation: Normal - Cardiovascular Rhythm: Regular Heart sounds: Normal auscultation Murmur: No - Abdominal Inspection: Normal Distension: No distension Bowel sounds: Normal Tenderness: Nontender. No: Tender Organomegaly: No organomegaly - Back Back: Normal, Nontender. No: CVA tenderness - Extremities General upper extremity: Normal inspection, Nontender, Normal color, Normal ROM , Normal temperature General lower extremity: Normal inspection, Nontender, Normal color, Normal ROM , Normal temperature, Normal weight bearing. No: Joey's sign - Neurological Neuro grossly intact: Yes Cognition: Normal Orientation: AAOx4 [place] Coma Scale Eye Opening: Spontaneous Efrain Coma Scale Verbal: Oriented Efrain Coma Scale Motor: Obeys Commands [place] Coma Scale Total: 15 Speech: Normal Motor strength normal: LUE, RUE, LLE, RLE Sensory: Normal - Psychological Associated symptoms: Normal affect, Normal mood - Skin Skin Temperature: Warm Skin Moisture: Dry Skin Color: Normal Course - Re-evaluation Re-evalutation: 02/02/18 17:21 Because the patient has had a recent gonorrhea and/or chlamydia infection in August and January 10 I will treat the patient. She states she has to go to work at [employer] and cannot get out of it. She will call me back for the urinalysis, test, and wet prep results. 02/03/18 16:29 Called the patient because her wet prep shows 4+ bacteria 4+ epithelial cells the bacterial vaginosis. I will treat her with 500 mg of Flagyl twice a day for 1 week. Her urinalysis showed group B strep which I explained to her would be important to know and have treated if she were to have a . 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 The gonorrhea and Chlamydia were negative. - Vital Signs Vital signs: Temp Pulse Resp BP Pulse Ox 98.9 F 92 16 113/74 98 02/02/18 16:48 02/02/18 16:48 02/02/18 16:48 02/02/18 16:48 02/02/18 16:48 - Laboratory Laboratory results interpreted by me: 02/02/18 17:10 Urine Urobilinogen 2.0 H Discharge - Discharge Clinical Impression: Mild pelvic pain, Vaginal discharge Condition: Good Disposition: HOME, SELF-CARE Instructions: Azithromycin ([facility]), Pelvic Pain ([facility]), Rocephin ([facility]), Vaginitis ([facility]) Additional Instructions: Call me in 3 hours at [phone] for your urinalysis, and wet prep results If you are positive for gonorrhea or chlamydia again both you and your spouse need to be tested for cure before you have intercourse. Prescriptions: Metronidazole [Flagyl 500 mg Tablet] 500 mg PO BID #14 tablet Forms: Return to Work
[2018-02-02] MEDS ORDERED: CEFTRIAXONE INJ 250 MG VIAL IM ONE (17:20)
[2018-02-02] MEDS ORDERED: ONDANSETRON 4 MG TAB.RAPDIS PO ONE (17:21)
[2018-02-02] MEDS ORDERED: AZITHROMYCIN 250 MG TABLET PO ONE (17:21)
[2018-02-02] MEDS ORDERED: LIDOCAINE 1% INJ-PF (10 MG/ML) 30 ML SDV INJ ONE (17:21)
[2018-02-02 17:41] LABS: AMORPHOUS SEDIMENT,URINE TRACE /HPF; APPEARANCE,URINE CLOUDY; BILIRUBIN,URINE NEGATIVE (NEGATIVE); COLOR,URINE YELLOW; GLUCOSE, URINE NEGATIVE (NEGATIVE); KETONES,URINE NEGATIVE (NEGATIVE); LEUKOCYTE ESTERASE,URINE NEGATIVE (NEGATIVE); NITRITE,URINE NEGATIVE (NEGATIVE); PROTEIN,URINE NEGATIVE (NEGATIVE); URINE SPECIFIC GRAVITY 1.017
[2018-02-02 17:47] LABS: BACTERIA (WET MOUNT) 4+ BACTERIA SEEN; EPITHELIALS (WET MOUNT) 4+ EPITHELIALS SEEN; T.VAGINALIS (WET MOUNT) NO TRICHOMONAS SEEN; WBCS (WET MOUNT) RARE WBCS SEEN; YEAST (WET MOUNT) NO YEAST SEEN
[2018-02-02 19:07] LABS: CHLAM PCR NOT DETECTED (NOT DETECT); GON PCR NOT DETECTED (NOT DETECT)
== END 2018-02-02 17:34 | disposition home or self-care (01) ==
LOC: ER 16:44
DX: N76.0 Acute vaginitis (principal); B96.89 Other specified bacterial agents as the cause of diseases classified elsewhere; R10.2 Pelvic and perineal pain; F17.200 Nicotine dependence, unspecified, uncomplicated; J45.909 Unspecified asthma, uncomplicated; Z91.040 Latex allergy status; Z88.0 Allergy status to penicillin
CPT/HCPCS: 99283; 96372; 87086; 87210; 81025; 87088; 81001; 87491; 87591; A9270 ×2; J3490; J0696; S0119

== ENCOUNTER 2018-05-12 17:59 | Emergency (ER) | payer MEDICARE, OTHER, MEDICAID ==
--- NOTE | 2018-05-12 19:12 | ER Document Report ---
HPI - HPI Patient complains to provider of: knee injury Time Seen by Provider: 05/12/18 18:58 Onset: Yesterday Onset/Duration: Sudden Quality of pain: Achy Pain Level: 5 Context: Patient states she was playing around with a friend yesterday who was pulling on her right foot. Patient states she was hanging onto a chair and the friend persisted and pulling her leg. Patient complains of right knee pain since yesterday. Patient also reports that she feels as though she has had UTI symptoms for the past 3 days. Patient reports foul-smelling urine with dysuria. Patient complains of nausea but denies vomiting. Patient denies any fever. Patient states that she is also concerned that her boyfriend gave her an STD and would like to be checked. Associated Symptoms: Nausea, Other - Dysuria, right knee pain. denies: Nonproductive cough, Fever, Vomiting Exacerbated by: Standing, Movement, Walking Relieved by: Denies Similar symptoms previously: No Recently seen / treated by doctor: No - ROS ROS below otherwise negative: Yes Systems Reviewed and Negative: Yes All other systems reviewed and negative - CONSTITUTIONAL Constitutional: DENIES: Fever - NEURO Neurology: DENIES: Headache - RESPIRATORY Respiratory: DENIES: Coughing - GASTROINTESTINAL Gastrointestinal: REPORTS: Abdominal Pain, Nausea. DENIES: Patient vomiting - URINARY Urinary: REPORTS: Dysuria - REPRODUCTIVE Reproductive: REPORTS: Abnormal bleeding / discharge. DENIES: : - MUSCULOSKELETAL Musculoskeletal: DENIES: Back Pain - DERM Skin Color: Normal Skin Problems: None Past Medical History - General Information source: Patient - Social History Smoking Status: Never Smoker Frequency of alcohol use: None Drug Abuse: None Occupation: Student Family History: Reviewed & Not Pertinent Pulmonary Medical History: Reports: Hx Asthma Renal/ Medical History: Denies: Hx Peritoneal Dialysis Musculoskeletal Medical History: Reports Hx Musculoskeletal Trauma Psychiatric Medical History: Reports: Hx Attention Deficit Hyperactivity Disorder, Hx Bipolar Disorder, Hx Depression Traumatic Medical History: Reports: Hx Fractures - Nose Past Surgical History: Reports: Hx Section Vertical Provider Document - CONSTITUTIONAL Agree With Documented VS: Yes Exam Limitations: No Limitations General Appearance: WD/WN, No Apparent Distress - INFECTION CONTROL TRAVEL OUTSIDE OF THE [place] IN LAST 30 DAYS: No - HEENT HEENT: Atraumatic, Normocephalic - NECK Neck: Normal Inspection, Supple - RESPIRATORY Respiratory: Breath Sounds Normal, No Respiratory Distress - CARDIOVASCULAR Cardiovascular: Regular Rate, Regular Rhythm - GI/ABDOMEN Gastrointestinal: Abdomen Soft, Abdomen Tender - suprapubic - REPRODUCTIVE Female Genitalia: CMT. negative: Adnexal Pain-Right, Adnexal Pain-Left - BACK Back: CVA Tenderness-Right, CVA Tenderness-Left - MUSCULOSKELETAL/EXTREMETIES Musculoskeletal/Extremeties: NEO FROM - NEURO Level of Consciousness: Awake, Alert, Appropriate Motor/Sensory: No Motor Deficit - DERM Integumentary: Warm, Dry, No Rash Course - Vital Signs Vital signs: Temp Pulse Resp BP Pulse Ox 98.5 F 85 18 123/66 99 05/12/18 18:10 05/12/18 18:10 05/12/18 18:10 05/12/18 18:10 05/12/18 18:10 Procedures - Immobilization Right Knee Pre-Proc Neuro Vasc Exam: Normal Immobilizer type: Nicho wrap Performed by: RN Post-Proc Neuro Vasc Exam: Normal Alignment checked and good: Yes Discharge - Discharge Clinical Impression: Trichomonal vaginitis, PID (acute pelvic inflammatory disease) Knee sprain Qualifiers: Encounter type: initial encounter Involved ligament of knee: unspecified ligament Laterality: right Qualified Code(s): S83.91XA - Sprain of unspecified site of right knee, initial encounter Condition: Stable Disposition: HOME, SELF-CARE Instructions: Nicho Wrap ([facility]), Use of Crutches ([facility]), Doxycycline ([facility]), Ice & Elevation ([facility]), Metronidazole ([facility]), Pelvic Inflammatory Disease ([facility]), Rocephin ([facility]), Sprained Knee ([facility]), Trichomonas Infection ([facility]) Additional Instructions: Return immediately for any new or worsening symptoms Followup with your primary care provider, call tomorrow to make a followup appointment Cultures are pending, will call if you need any different treatment. Have your partner seek treatment for trichomonas Follow-up with orthopedics for any persistent pain or problems Weightbearing as tolerated Prescriptions: Doxycycline Hyclate 100 mg PO BID #28 capsule Hydrocodone/Acetaminophen [[place] 5-325 mg Tablet] 1 tab PO Q6 PRN #12 tablet PRN Reason: Ibuprofen [Motrin 600 Mg Tablet] 600 mg PO Q6H PRN #20 tablet PRN Reason: for pain Forms: Return to Work Referrals: [facility] [NO LOCAL MD] - Follow up as needed
[2018-05-12] MEDS ORDERED: LIDOCAINE 1% INJ-PF (10 MG/ML) 30 ML SDV INJ ONE (19:48)
[2018-05-12] MEDS ORDERED: CEFTRIAXONE INJ 1000 MG VIAL IM ONE (19:48)
[2018-05-12] MEDS ORDERED: HYDROCODONE/ACETAMINOPHEN 5-325 MG TABLET PO ONE ×2 (19:54→20:55)
[2018-05-12 19:58] LABS: BACTERIA (WET MOUNT) 3+ BACTERIA SEEN; EPITHELIALS (WET MOUNT) 3+ EPITHELIALS SEEN; T.VAGINALIS (WET MOUNT) TRICHOMONAS SEEN; WBCS (WET MOUNT) 2+ WBCS SEEN; YEAST (WET MOUNT) NO YEAST SEEN
[2018-05-12 20:19] LABS: APPEARANCE,URINE SLIGHTLY-CLOUDY; BILIRUBIN,URINE NEGATIVE (NEGATIVE); COLOR,URINE YELLOW; GLUCOSE, URINE NEGATIVE (NEGATIVE); KETONES,URINE NEGATIVE (NEGATIVE); LEUKOCYTE ESTERASE,URINE MODERATE (NEGATIVE); NITRITE,URINE NEGATIVE (NEGATIVE); PROTEIN,URINE NEGATIVE (NEGATIVE); URINE SPECIFIC GRAVITY 1.015
[2018-05-12] MEDS ORDERED: IBUPROFEN 800 MG TABLET PO ONE (20:33)
[2018-05-12] MEDS ORDERED: METRONIDAZOLE 500 MG TABLET PO ONE (20:34)
[2018-05-12] MEDS ORDERED: DOXYCYCLINE HYCLATE 100 MG TABLET PO ONE (20:34)
[2018-05-12 21:26] LABS: CHLAM PCR DETECTED (NOT DETECT); GON PCR NOT DETECTED (NOT DETECT)
[2018-05-12 21:50] VITALS: BP 109/72
== END 2018-05-12 21:08 | disposition home or self-care (01) ==
LOC: ER 17:59
DX: S83.91XA Sprain of unspecified site of right knee, initial encounter (principal); A59.01 Trichomonal vulvovaginitis; N73.9 Female pelvic inflammatory disease, unspecified; R11.0 Nausea; R30.0 Dysuria; X50.9XXA Other and unspecified overexertion or strenuous movements or postures, initial encounter; J45.909 Unspecified asthma, uncomplicated
CPT/HCPCS: 99283; 96372; 87210; 81025; 81001; 87491; 87591; A9270 ×4; J3490; J0696